=== PATIENT | female | born 2000 | race African-American/Black ===

== ENCOUNTER 2018-07-20 11:13 | Emergency (ER) | payer OTHER | END 2018-07-20 12:57 | disposition home or self-care (01) | LOC: M ED 11:13 | DX: G89.18 Other acute postprocedural pain (principal); Z79.3 Long term (current) use of hormonal contraceptives | CPT/HCPCS: 99283 ==

== ENCOUNTER → 2018-08-21 | Outpatient (REF) | payer OTHER | LOC: M LAB REF 17:04 | DX: S40.852A Superficial foreign body of left upper arm, initial encounter (principal); W18.30XA Fall on same level, unspecified, initial encounter; Y92.009 Unspecified place in unspecified non-institutional (private) residence as the place of occurrence of the external cause ==

== ENCOUNTER 2018-11-20 22:06 | Inpatient (IN) | payer OTHER ==
[~2018-11-20] VITALS: Ht 177.8 cm; Wt 65.0 kg
[2018-11-20 23:18] LABS: HEMATOCRIT 38.7 % (36.0-47.0); HEMOGLOBIN 12.7 g/dl (12.0-15.5); MEAN CORPUSCULAR HEMOGLOBIN 30.1 pg (27.0-33.0); MEAN CORPUSCULAR HGB CONC 32.8 g/dl (32.0-36.5); MEAN CORPUSCULAR VOLUME 91.7 fl (80.0-96.0); PLATELET COUNT, AUTOMATED 193 10^3/uL (150-450); RED BLOOD COUNT 4.22 10^6/uL (4.00-5.40)
[2018-11-20 23:43] LABS: AMPHETAMINES LEVEL URINE NEGATIVE (NEGATIVE); BARBITURATES URINE NEGATIVE (NEGATIVE); BENZODIAZEPINES URINE NEGATIVE (NEGATIVE); CANNABINOIDS URINE NEGATIVE (NEGATIVE); COCAINE METABOLITE URINE NEGATIVE (NEGATIVE); HCG, SERUM QUALITATIVE NEGATIVE (NEGATIVE); METHADONE URINE NEGATIVE (NEGATIVE); OPIATES URINE NEGATIVE (NEGATIVE); PHENCYCLIDINE URINE NEGATIVE (NEGATIVE)
[2018-11-20 23:57] LABS: ACETAMINOPHEN LEVEL < 2.0 UG/ML (10.0-30.0); ALBUMIN 3.6 GM/DL (3.2-5.2); ALT/SGPT 15 U/L (12-78); BILIRUBIN,DIRECT 0.1 MG/DL (0.0-0.2); BILIRUBIN,TOTAL 0.3 MG/DL (0.2-1.0); BLOOD UREA NITROGEN 23 MG/DL (7-18); CALCIUM LEVEL 8.6 MG/DL (8.5-10.1); CARBON DIOXIDE LEVEL 27 MEQ/L (21-32); CHLORIDE LEVEL 106 MEQ/L (98-107); ETHYL ALCOHOL (ETHANOL) < 0.003 % (0.000-0.010); GLUCOSE, FASTING 84 MG/DL (70-100); POTASSIUM SERUM 4.4 MEQ/L (3.5-5.1); SALICYLATE LEVEL < 1.7 MG/DL (5.0-30.0); SODIUM LEVEL 139 MEQ/L (136-145); TOTAL PROTEIN 7.2 GM/DL (6.4-8.2)
[2018-11-21] MEDS ORDERED: FLUO20CA8 PO (16:58)
[2018-11-21] MEDS ORDERED: ACETAMINOPHEN TAB 650MG DOSE (2X325MG) PO PRN (17:00)
[2018-11-21] MEDS ORDERED: MOM 30ML SUSPENSION UDC PO PRN (17:00)
[2018-11-21] MEDS ORDERED: MAALOX 30 ML SUSP *UDC PO PRN (17:00)
[2018-11-21 18:08] VITALS: BP 109/63
[2018-11-22 06:00] VITALS: BP 101/59
--- NOTE | 2018-11-22 09:57 | HPEPDOC ---
[facility] Medical History & Physical Date of Admission Nov 21, 2018 History and Physical [facility]CP: [facility] ATTENDING: Dr. Maira Patel HPI: 18 yo F admitted to [facility] for unspecified depressive disorder, being m edically examined today. No acute medical complaints today. Denies any fevers, chills, weakness, fatigue, AMBROCIO, CP, SOB, cough, palpitations, abdominal pain, N/V/D or changes in bowel or bladder habits. PMHx: Anxiety Depression History of SI/SA PSHX: Nexplanon placed/removed. SOCHX: Resides in: [facility], from [facility] Marital Status: Single Kids: None Employment: Active duty Tobacco use: Denies ETOH: Denies Illicit Drugs: Denies IV Drug Use: Denies Tattoos done unprofessionally: Denies FAMHX: Mother: Alive, well Father: Alive, well Siblings: 5 sisters Alive, one sister with history of SA Children: None Paternal aunt with history of SA ROS: As noted in HPI, otherwise 11pt ROS of systems reviewed and remarkable only for LMP 10/23/18 PE: GEN: 18 yo F, appears stated age. Well-nourished, well developed. No acute distress. Alert and oriented x 3. Pleasant, interactive. HEENT: Normocephalic, atraumatic. Pupils are equal, round, and reactive to light. Extraocular movements are intact. No nystagmus appreciated. Sclera are nonicteric. Conjunctiva without injection. Nose midline. Nasal turbinates wit hout bogginess. EACs both patent BL. TMs both visualized and em with good cone of light, no bulging or erythema. No facial asymmetry. Moist mucous membranes. Dentition fair. Pharynx pink and moist, no cobblestoning. Neck supple, trachea midline. No lymphadenopathy or thyromegaly appreciated. CHEST: Regular rate and rhythm, +S1, +S2 LUNGS: Clear to auscultation bilaterally. No wheezes, rales, or rhonchi. Breathing appears symmetric and easy. Patient is speaking in full sentences. No accessory muscle use. ABD: Round, soft, non-tender, non-distended. +Bowel sounds throughout. No rebound or guarding. No costovertebral angle tenderness. EXT: Pulses 2+ bilaterally dorsalis pedis and radial. No lower extremity edema appreciated. SKIN: [place], dry, warm. Capillary refill <2sec. No rashes. NEURO: Alert and oriented x 3. Cranial nerves III-XII are intact. No focal deficits appreciated. EKG: Pending A&P: 18 yo F admitted to [facility] for unspecified depressive disorder 1. Psych. Plan per Psychiatry.Obtain baseline EKG to assure the safety of psychiatric medications as they can prolong the QT interval. 2. 3. 4. Follow up with PCP on discharge. 5. Staff member Sultana MARIANO present throughout exam. Vital Signs Vital Signs Date Time Temp Pulse Resp B/P (MAP) Pulse Ox O2 Delivery O2 Flow Rate FiO2 11/22/18 06:00 99.7 64 16 101/59 (73) 11/21/18 18:08 99 11/21/18 06:13 Room Air Laboratory Data Labs 24H Item Value Date Time White Blood Count 6.0 10^3/uL 11/20/182307 Red Blood Count 4.22 10^6/uL 11/20/182307 Hemoglobin 12.7 g/dl 11/20/182307 Hematocrit 38.7 % 11/20/182307 Mean Corpuscular Volume 91.7 fl 11/20/182307 Mean Corpuscular Hemoglobin 30.1 pg 11/20/182307 Mean Corpuscular Hemoglobin Concent 32.8 g/dl 11/20/182307 Red Cell Distribution Width 11.9 % 11/20/182307 Platelet Count 193 10^3/uL 11/20/182307 Nucleated Red Blood Cells % (auto) 0.0 % 11/20/182307 Sodium Level 139 MEQ/L 11/20/182307 Potassium Level 4.4 MEQ/L 11/20/182307 Chloride Level 106 MEQ/L 11/20/182307 Carbon Dioxide Level 27 MEQ/L 11/20/182307 Anion Gap 6 MEQ/L L 11/20/182307 Blood Urea Nitrogen 23 MG/DL H 11/20/182307 Creatinine 0.80 MG/DL 11/20/182307 Fasting Glucose 84 MG/DL 11/20/182307 Calcium Level 8.6 MG/DL 11/20/182307 Total Bilirubin 0.3 MG/DL 11/20/188 Direct Bilirubin 0.1 MG/DL 11/20/182307 Aspartate Amino Transf (AST/SGOT) 10 U/L 11/20/182307 Alanine Aminotransferase (ALT/SGPT) 15 U/L 11/20/182307 Alkaline Phosphatase 68 U/L 11/20/182307 Total Protein 7.2 GM/DL 11/20/182307 Albumin 3.6 GM/DL 11/20/182307 Albumin/Globulin Ratio 1.00 11/20/182307 Thyroid Stimulating Hormone (TSH) 1.060 uIU/ML 11/20/182307 Human Chorionic Gonadotropin, Qual NEGATIVE 11/20/182307 Salicylates Level < 1.7 MG/DL L 11/20/182307 Urine Opiates Screen NEGATIVE 11/20/182307 Urine Methadone Screen NEGATIVE 11/20/182307 Acetaminophen Level < 2.0 UG/ML L 11/20/182307 Urine Barbiturates Screen NEGATIVE 11/20/182307 Urine Phencyclidine Screen NEGATIVE 11/20/182307 Urine Amphetamines Screen NEGATIVE 11/20/182307 Urine Benzodiazepines Screen NEGATIVE 11/20/182307 Urine Cocaine Metabolite Screen NEGATIVE 11/20/182307 Urine Cannabinoids Screen NEGATIVE 11/20/182307 Ethyl Alcohol Level < 0.003 % 11/20/182307 Home Medications Scheduled Fluoxetine Hcl (Fluoxetine) 20 Mg Cap, 20 MG PO DAILY Allergies Coded Allergies: No Known Allergies (Unverified , 07/20/18) Juliet Eagle Nov 22, 2018 09:57
--- NOTE | 2018-11-22 12:00 | MHHPEPDOC ---
General Date Of Admission: Nov 21, 2018 Legal Status: 9.39 Chief Complaint "SI with plan to shoot myself." History of Present Illness HISTORY OF THE PRESENT ILLNESS: Patient is a 18 -year-old , AD, female, with a self reported history of depression, anxiety, bulimia, SA, several psych admission in past else where who was brought to ED by Sgt after friend called him b/c pt endorsing depression and SI with plan to shoot herself (she doesn't own a firearm per ED). Per ED pt very evasive when seen admitting to a history of SA x2 and several psych admissions in [place] but would not give any details about her SA's or admissions just admitted to a lot of problems and being "out of control" in high school. Pt in ED reported worsening depression and eating disorder symptoms stating "I don't like hospital food and this will not help my eating d/o." Pt had a friend in the ED that she request be with her at all times as she felt anxious around new people. Per ED, pt had been in college when she enlisted due to "emotional issues" in school and self enrolled herself at [facility] 4mo ago. Pt reported that she was recently but recently terminated the due to her eating d/o and doctor recommendations. States she was taking prozac but felt she needed a medication change even though she has been noncompliant on it for over 2wks. In Ed, pt denied current SI. She denied HI, hallucinations, delusions, psychosis. Pt seen today and Psychiatric Review of Systems Depression (2 or more weeks): depressed mood, anhedonia, feelings of worthlesness, difficulty concentrating, appetite changes (Eating d/o), suicidal thoughts Ana (4 or more days of): denies Psychosis: denies Anxiety: gen/non-specific anxiety, situational anxiety, stressor related anxiety Anxiety/ 6 months or more of: restlessness, keyed up, difficulty concentrating, irritability Past Psychiatric History Previous Psychiatric Diagnosis: bulimia, depression, anxiety Previous Psychiatric Admissions: several in [place] would not give details Suicide Attempts: 2 SI with intent while in High school, would not give details stating she didn't remember in the ED and with me Psychiatric Follow-up: [facility]. Psychiatric medications: prozac 20mg daily, noncompliant over 2wks Past Medical History Medical Problems denies Head Injury: No Seizures: No Hospitalizations: Yes Surgeries: No Family Medical/Psychiatric HX Medical Problems noncontributory Psychiatric Disorders: No Addiction: No Suicide Attemps/Completions: No Addiction History nicotine Social History Childhood: Born and Raised [place], 2 parent home, 5 siblings (1 older and 4 younger), moved to [place] at 15. Good childhood. Abuse/Trauma:denies Current Living Situation: [place] [place] with a roommate. 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, E3, dental tech Social Support: friends, friends Legal: denies Marital: single, no children Mental Status Examination General Appearance: well groomed, appears stated age, hospital scubs/clothing Build: average Demeanor: average, guarded Eye Contact: average Activity: average, anxious Behavior: cooperative Speech: clear, spontaneous, normal volume, reg/rate,rhythm,volume Mood: depressed, anxious Mood anxious Affect: constricted, appropriate, congruent, anxious Thought Process: logical/linear, depressed, intact Thought Content (Delusions): none reported, denies SI, HI, AVH Thought Content (Other): none reported, appropriate Thought Content (Aggressive): none reported Perception (Hallucinations): none reported Perception (Other): none reported Cognition (Impairment of): none reported Cognition(Intelligence Est.): average Oriented: Awake, Alert, Oriented times three Insight: fair Judgment: Fair Psychosis: Denies Diagnoses Generalized Anxiety D/O Depression Unspecified 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 States she accepts it and that she's too young to have a child now but appears to guilt feelings still that she tries to not focus on. Had been on prozac but stopped b/c it was causing tremors. Agreeable to starting effexor xr for anxiety and depression. Risks/benefits discussed. Denies current SI/HI, hallucinations, delusions. Feels safe here. Denies current ED symptoms and behaviors. Initial Treatment Plan 1. Patient was admitted on a 9.39 status. 2. Complete history was obtained. 3. With patients permission, family will be contacted and database will be expanded. 4. Patients medication regimen will be reviewed and changed accordingly. 5. Patient will be provided with protected environment. 6. Patient will be treated with individual, group, and milieu therapies. 7. Patient will receive supportive psych-education. 8. Discharge planning will commence immediately. 9. Outpatient follow-up treatment will be strongly recommended. 10. The initial treatment plan will focus initially on: * Depression. * Risk for suicide. * Substance abuse. 11. Start effexor xr 37.5mg daily for mood and anxiety ESTIMATED LENGTH OF STAY: 5-7 DAYS. TIME SPENT COUNSELING AND COORDINATING INITIAL CARE: 60 minutes. Vital Signs Vital Signs Date Time Temp Pulse Resp B/P (MAP) Pulse Ox O2 Delivery O2 Flow Rate FiO2 11/22/18 06:00 99.7 64 16 101/59 (73) 11/21/18 18:08 99 11/21/18 06:13 Room Air Medications Scheduled Fluoxetine Hcl (Fluoxetine) 20 Mg Cap, 20 MG PO DAILY, (Reported) Allergies Coded Allergies: No Known Allergies (Unverified , 07/20/18) KAVYA JOE DO Nov 22, 2018 12:00
[2018-11-22] MEDS ORDERED: VENLAFAXINE **XR** 37.5 MG CAPSULE PO ONE (12:15)
[2018-11-22 18:00] VITALS: BP 127/85
[2018-11-23 07:45] VITALS: BP 106/55
[2018-11-23] MEDS: VENLAFAXINE **XR** 37.5 MG CAPSULE PO SCH (09:36)
--- NOTE | 2018-11-23 11:14 | MHIPNPDOC ---
[facility] Progress Note Progress Note DATE OF SERVICE: 11/23/18 HISTORY: Patient is a 18 -year-old , AD, female, with a self reported history of depression, anxiety, bulimia, SA, several psych admission in past else where who was brought to ED by Sgt after friend called him b/c pt endorsing depression and SI with plan to shoot herself (she doesn't own a firearm per ED). Per ED pt very evasive when seen admitting to a history of SA x2 and several psych admissions in [place] but would not give any details about her SA's or admissions just admitted to a lot of problems and being "out of control" in high school. Pt in ED reported worsening depression and eating disorder symptoms stating "I don't like hospital food and this will not help my eating d/o." Pt had a friend in the ED that she request be with her at all times as she felt anxious around new people. Per ED, pt had been in college when she enlisted due to "emotional issues" in school and self enrolled herself at [facility] 4mo ago. Pt reported that she was recently but recently terminated the due to her eating d/o and doctor recommendations. States she was taking prozac but felt she needed a medication change even though she has been noncompliant on it for over 2wks. In Ed, pt denied current SI. She denied HI, hallucinations, delusions, psychosis. VITAL SIGNS: See below. NEW TEST RESULTS: See below. CURRENT MEDICATIONS: See below. MENTAL STATUS EXAMINATION: General Appearance: well groomed, appears stated age, hospital scrubs/clothing Build: average Demeanor: average, guarded Eye Contact: average Activity: average, anxious Behavior: cooperative Speech: clear, spontaneous, normal volume, reg/rate,rhythm,volume Mood: less depressed, anxious Mood anxious Affect: less constricted, appropriate, congruent, anxious Thought Process: logical/linear, less depressed, intact Thought Content (Delusions): none reported, denies SI, HI, AVH Thought Content (Other): none reported, appropriate Thought Content (Aggressive): none reported Perception (Hallucinations): none reported Perception (Other): none reported Cognition (Impairment of): none reported Cognition(Intelligence Est.): average Oriented: Awake, Alert, Oriented times three Insight: fair Judgment: Fair Psychosis: Denies DIAGNOSES: Generalized Anxiety D/O Depression Unspecified 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 Spoke with her close friend on the phone yesterday which made her feel good and she hopes her friend visits her on the weekend. States she's being social on the milieu which is beneficial. States she slept algitht last night but her roommate snores. Feels she is tolerating her medications and they're beneficial. She is attending groups and finding them helpful. States she's still biting her fingers when she's anxious and discusses coping strategies and habit replacing ways to stop. She denies insomnia, SI/HI, hallucinations, delusions. Pt feels safe here. MANAGEMENT PLAN: Continue current treatment Medication: effexor xr 37.5mg daily for mood and anxiety vistaril 10mg q6hr prn anxiety trazodone 50mg qhs prn insomnia TIME SPENT: 30 minutes. Vital Signs Vital Signs Date Time Temp Pulse Resp B/P (MAP) Pulse Ox O2 Delivery O2 Flow Rate FiO2 11/23/18 07:45 98.2 72 16 106/55 (72) 11/22/18 18:00 99 11/21/18 06:13 Room Air Current Medications Current Medications Acetaminophen (Tylenol Tab) 650 mg Q6HP PRN PO HEADACHE or DISCOMFORT; Start 11/21/18 at 17:00 Al Hydrox/Mg Hydrox/Simethicone (Mylanta) 30 ml Q4HP PRN PO HEARTBURN/INDIGESTION; Start 11/21/18 at 17:00 Home Med (Med Rec Complete!) ASDIRECTED XX ; Start 11/21/18 at 17:00; Stop 11/21/18 at 17:01; Status DC Hydroxyzine HCl (Atarax) 10 mg Q6HP PRN PO ANXIETY/AGITATION; Start 11/22/18 at 12:00 Magnesium Hydroxide (Milk Of Magnesia) 30 ml DAILYPRN PRN PO CONSTIPATION; Start 11/21/18 at 17:00 Trazodone HCl (Desyrel) 50 mg QHSP PRN PO INSOMNIA; Start 11/21/18 at 17:00 Venlafaxine HCl (Effexor Xr) 37.5 mg DAILY PO Last administered on 11/23/18at 09:36; Start 11/23/18 at 09:00 Allergies Coded Allergies: No Known Allergies (Unverified , 07/20/18) KAVYA JOE DO Nov 23, 2018 11:14 am
[2018-11-23 18:00] VITALS: BP 125/74
[2018-11-23] MEDS: traZODone 50 MG TAB PO PRN (20:36)
[2018-11-24 06:41] VITALS: BP 111/57
[2018-11-24] MEDS: VENLAFAXINE **XR** 37.5 MG CAPSULE PO SCH (09:11)
--- NOTE | 2018-11-24 09:21 | MHIPNPDOC ---
[facility] Progress Note Progress Note DATE OF SERVICE: 11/24/18 HISTORY: Patient is a 18 -year-old , AD, female, with a self reported history of depression, anxiety, bulimia, SA, several psych admission in past else where who was brought to ED by Sgt after friend called him b/c pt endorsing depression and SI with plan to shoot herself (she doesn't own a firearm per ED). Per ED pt very evasive when seen admitting to a history of SA x2 and several psych admissions in [place] but would not give any details about her SA's or admissions just admitted to a lot of problems and being "out of control" in high school. Pt in ED reported worsening depression and eating disorder symptoms stating "I don't like hospital food and this will not help my eating d/o." Pt had a friend in the ED that she request be with her at all times as she felt anxious around new people. Per ED, pt had been in college when she enlisted due to "emotional issues" in school and self enrolled herself at [facility] 4mo ago. Pt reported that she was recently but recently terminated the due to her eating d/o and doctor recommendations. States she was taking prozac but felt she needed a medication change even though she has been noncompliant on it for over 2wks. In Ed, pt denied current SI. She denied HI, hallucinations, delusions, psychosis. VITAL SIGNS: See below. NEW TEST RESULTS: See below. CURRENT MEDICATIONS: See below. MENTAL STATUS EXAMINATION: General Appearance: well groomed, appears stated age, hospital scrubs/clothing Build: average Demeanor: average, guarded Eye Contact: average Activity: average, less anxious Behavior: cooperative Speech: clear, spontaneous, normal volume, reg/rate,rhythm,volume Mood: less depressed, less anxious Mood "better" Affect: less constricted, appropriate, congruent, less anxious Thought Process: logical/linear, less depressed, intact Thought Content (Delusions): none reported, denies SI, HI, AVH Thought Content (Other): none reported, appropriate Thought Content (Aggressive): none reported Perception (Hallucinations): none reported Perception (Other): none reported Cognition (Impairment of): none reported Cognition(Intelligence Est.): average Oriented: Awake, Alert, Oriented times three Insight: fair Judgment: Fair Psychosis: Denies DIAGNOSES: Generalized Anxiety D/O Depression Unspecified 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 States her close friend came to visit her last night which made her feel really good. States she's being social on the milieu which is beneficial. States she slept well last night with the use of trazodone. Minor daytime fatigue but wants to continue medication as it is. Feels she is tolerating her medications and they're beneficial. She is attending groups and finding them helpful. Trying to bite her fingers less and is working on habit replacing ways to stop. She denies insomnia, SI/HI, hallucinations, delusions. Pt feels safe here. MANAGEMENT PLAN: Continue current treatment Medication: effexor xr 37.5mg daily for mood and anxiety vistaril 10mg q6hr prn anxiety trazodone 50mg qhs prn insomnia TIME SPENT: 30 minutes. Vital Signs Vital Signs Date Time Temp Pulse Resp B/P (MAP) Pulse Ox O2 Delivery O2 Flow Rate FiO2 11/24/18 06:41 97.7 61 14 111/57 (75) 11/22/18 18:00 99 11/21/18 06:13 Room Air Current Medications Current Medications Acetaminophen (Tylenol Tab) 650 mg Q6HP PRN PO HEADACHE or DISCOMFORT; Start 11/21/18 at 17:00 Al Hydrox/Mg Hydrox/Simethicone (Mylanta) 30 ml Q4HP PRN PO HEARTBURN/INDIGESTION; Start 11/21/18 at 17:00 Home Med (Med Rec Complete!) ASDIRECTED XX ; Start 11/21/18 at 17:00; Stop 11/21/18 at 17:01; Status DC Hydroxyzine HCl (Atarax) 10 mg Q6HP PRN PO ANXIETY/AGITATION; Start 11/22/18 at 12:00 Magnesium Hydroxide (Milk Of Magnesia) 30 ml DAILYPRN PRN PO CONSTIPATION; Start 11/21/18 at 17:00 Trazodone HCl (Desyrel) 50 mg QHSP PRN PO INSOMNIA Last administered on 11/23/18at 20:36; Start 11/21/18 at 17:00 Venlafaxine HCl (Effexor Xr) 37.5 mg DAILY PO Last administered on 11/24/18at 09:11; Start 11/23/18 at 09:00 Allergies Coded Allergies: No Known Allergies (Unverified , 07/20/18) KAVYA JOE DO Nov 24, 2018 9:21 am
[2018-11-24 18:00] VITALS: BP 124/57
[2018-11-24] MEDS: traZODone 50 MG TAB PO PRN (20:09)
[2018-11-25 06:31] VITALS: BP 104/52
[2018-11-25] MEDS: VENLAFAXINE **XR** 37.5 MG CAPSULE PO SCH (09:23)
[2018-11-25 18:00] VITALS: BP 111/68
[2018-11-25] MEDS: traZODone 50 MG TAB PO PRN (20:35)
[2018-11-25] MEDS: hydrOXYzine 10 MG TAB PO PRN (20:53)
[2018-11-26 06:51] VITALS: BP 92/55
[2018-11-26] MEDS: hydrOXYzine 10 MG TAB PO PRN ×2 (09:15→20:09)
[2018-11-26] MEDS: VENLAFAXINE **XR** 37.5 MG CAPSULE PO SCH (09:16)
--- NOTE | 2018-11-26 10:03 | MHIPNPDOC ---
[facility] Progress Note Progress Note DATE OF SERVICE: 11/26/18 HISTORY: Patient is a 18 -year-old , AD, female, with a self reported history of depression, anxiety, bulimia, SA, several psych admission in past else where who was brought to ED by Sgt after friend called him b/c pt endorsing depression and SI with plan to shoot herself (she doesn't own a firearm per ED). Per ED pt very evasive when seen admitting to a history of SA x2 and several psych admissions in [place] but would not give any details about her SA's or admissions just admitted to a lot of problems and being "out of control" in high school. Pt in ED reported worsening depression and eating disorder symptoms stating "I don't like hospital food and this will not help my eating d/o." Pt had a friend in the ED that she request be with her at all times as she felt anxious around new people. Per ED, pt had been in college when she enlisted due to "emotional issues" in school and self enrolled herself at [facility] 4mo ago. Pt reported that she was recently but recently terminated the due to her eating d/o and doctor recommendations. States she was taking prozac but felt she needed a medication change even though she has been noncompliant on it for over 2wks. In Ed, pt denied current SI. She denied HI, hallucinations, delusions, psychosis. VITAL SIGNS: See below. NEW TEST RESULTS: See below. CURRENT MEDICATIONS: See below. MENTAL STATUS EXAMINATION: General Appearance: well groomed, appears stated age, hospital scrubs/clothing Build: average Demeanor: average, guarded Eye Contact: average Activity: average, less anxious Behavior: cooperative Speech: clear, spontaneous, normal volume, reg/rate,rhythm,volume Mood: less depressed, less anxious Mood "better" Affect: less constricted, appropriate, congruent, less anxious Thought Process: logical/linear, less depressed, intact Thought Content (Delusions): none reported, denies SI, HI, AVH Thought Content (Other): none reported, appropriate Thought Content (Aggressive): none reported Perception (Hallucinations): none reported Perception (Other): none reported Cognition (Impairment of): none reported Cognition(Intelligence Est.): average Oriented: Awake, Alert, Oriented times three Insight: fair Judgment: Fair Psychosis: Denies DIAGNOSES: Generalized Anxiety D/O Depression Unspecified 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 States she's tolerating the effexor xr and is finding it helpful. She had a good time watching the [employer] with her peer pts yesterday and that it was nice. Did not finish watching the game as she wanted to get some good rest which she did. States she's being social on the milieu which is beneficial. States vistaril is beneficial for anxiety and likes it. Endorses only minor fatigue from it that she states she's fine with as her anxiety is greatly improved. Feels she is tolerating her medications and they're beneficial. She is attending groups and finding them helpful. Trying to bite her fingers less and is working on habit replacing ways to stop. She denies insomnia, SI/HI, hallucinations, delusions. Pt feels safe here. MANAGEMENT PLAN: Continue current treatment Medication: effexor xr 37.5mg daily for mood and anxiety vistaril 10mg q6hr prn anxiety trazodone 50mg qhs prn insomnia TIME SPENT: 30 minutes. Vital Signs Vital Signs Date Time Temp Pulse Resp B/P (MAP) Pulse Ox O2 Delivery O2 Flow Rate FiO2 11/26/18 06:51 99.3 66 12 92/55 (67) 11/25/18 18:00 96 11/21/18 06:13 Room Air Current Medications Current Medications Acetaminophen (Tylenol Tab) 650 mg Q6HP PRN PO HEADACHE or DISCOMFORT Last administered on 11/25/18at 18:43; Start 11/21/18 at 17:00 Al Hydrox/Mg Hydrox/Simethicone (Mylanta) 30 ml Q4HP PRN PO HEARTBURN/INDIGEST ION; Start 11/21/18 at 17:00 Home Med (Med Rec Complete!) ASDIRECTED XX ; Start 11/21/18 at 17:00; Stop 11/21/18 at 17:01; Status DC Hydroxyzine HCl (Atarax) 10 mg Q6HP PRN PO ANXIETY/AGITATION Last administered on 11/25/18at 20:53; Start 11/22/18 at 12:00 Magnesium Hydroxide (Milk Of Magnesia) 30 ml DAILYPRN PRN PO CONSTIPATION; Start 11/21/18 at 17:00 Trazodone HCl (Desyrel) 50 mg QHSP PRN PO INSOMNIA Last administered on 11/25/18at 20:35; Start 11/21/18 at 17:00 Venlafaxine HCl (Effexor Xr) 37.5 mg DAILY PO Last administered on 11/25/18at 09:23; Start 11/23/18 at 09:00 Allergies Coded Allergies: No Known Allergies (Unverified , 07/20/18) KAVYA JOE DO Nov 26, 2018 9:15 am
[2018-11-26 18:00] VITALS: BP 119/65
[2018-11-26] MEDS: traZODone 50 MG TAB PO PRN (20:09)
[2018-11-27 06:32] VITALS: BP 100/50
[2018-11-27] MEDS: hydrOXYzine 10 MG TAB PO PRN (08:13)
[2018-11-27] MEDS: VENLAFAXINE **XR** 37.5 MG CAPSULE PO SCH (08:13)
--- NOTE | 2018-11-27 09:06 | MHDSPDOC ---
[facility] Discharge Summary Discharge Summary DATE OF ADMISSION: Nov 21, 2018 at 4:58 pm DATE OF DISCHARGE: Nov 27, 2018 DISCHARGE DIAGNOSIS: Generalized Anxiety D/O Depression Unspecified Hx Eating D/O - restrict/binge/purge type now in short term remission REASON FOR ADMISSION: Patient is a 18 -year-old , AD, female, with a self reported history of depression, anxiety, bulimia, SA, several psych admission in past else where who was brought to ED by Sgt after friend called him b/c pt endorsing depression and SI with plan to shoot herself (she doesn't own a firearm per ED). Per ED pt very evasive when seen admitting to a history of SA x2 and several psych admissions in [place] but would not give any details about her SA's or admissions just admitted to a lot of problems and being "out of control" in high school. Pt in ED reported worsening depression and eating disorder symptoms stating "I don't like hospital food and this will not help my eating d/o." Pt had a friend in the ED that she request be with her at all times as she felt anxious around new people. Per ED, pt had been in college when she enlisted due to "emotional issues" in school and self enrolled herself at [facility] 4mo ago. Pt reported that she was recently but recently terminated the due to her eating d/o and doctor recommendations. States she was taking prozac but felt she needed a medication change even though she has been noncompliant on it for over 2wks. In Ed, pt denied current SI. She denied HI, hallucinations, delusions, psychosis. CONSULTANTS INVOLVED: none TREATMENT AND PROGRESS ON THE UNIT : Pt was admitted to [facility], seen for psychiatric assessment and started on effexor xr 37.5mg daiy for mood and anxiety. She was provided vistaril 10mg q6hr prn anxiety and trazodone 50mg qhs prn insomnia. Pt found her medications beneficial and tolerated them well. She attended groups daily during his stay. She ate well during her treatment with no eating d/o behaviors. Her symptoms improved with treatment. On day of discharge she denied depression, anxiety, insomnia, SI/HI, hallucinations, delusions. She was discharged home after Brad meeting with follow-up at [facility]. She felt safe for discharge. DISCHARGE ASSESSMENT: Pt seen and states that her mood is "good" and she's excited to go home today. States she's tolerating the effexor xr and is finding it helpful. States she's being social on the milieu which is beneficial. States vistaril is beneficial for anxiety and likes it. Endorses only minor fatigue from it that she states she's fine with as her anxiety is greatly improved. Feels she is tolerating her medications and they're beneficial. She is attending groups and finding them helpful. She denies depression, anxiety, insomnia, SI/HI, hallucinations, delusions. Pt feels safe to be discharged home with her Brad. MENTAL STATUS EXAMINATION ON DISCHARGE: General Appearance: well groomed, appears stated age, own clothing Build: average Demeanor: average Eye Contact: average Activity: average, less anxious Behavior: cooperative Speech: clear, spontaneous, normal volume, reg/rate,rhythm,volume Mood: euthymic, full range, bright Mood "good" Affect: euthymic, full range, bright Thought Process: logical/linear, intact Thought Content (Delusions): none reported, denies SI, HI, AVH Thought Content (Other): none reported, appropriate Thought Content (Aggressive): none reported Perception (Hallucinations): none reported Perception (Other): none reported Cognition (Impairment of): none reported Cognition(Intelligence Est.): average Oriented: Awake, Alert, Oriented times three Insight: good Judgment: good Psychosis: Denies MEDICATIONS ON DISCHARGE: effexor xr 37.5mg daily for mood and anxiety vistaril 10mg q6hr prn anxiety trazodone 50mg qhs prn insomnia PLAN/FOLLOWUP ARRANGEMENTS: D/c home with Brad with follow-up at [facility] The amount of time spent in the coordination of care for this patient was approximately 30 minutes. Vital Signs/I&Os Vital Signs Date Time Temp Pulse Resp B/P (MAP) Pulse Ox O2 Delivery O2 Flow Rate FiO2 11/27/18 06:32 97.3 61 14 100/50 (67) 11/25/18 18:00 96 11/21/18 06:13 Room Air Medications Scheduled Fluoxetine Hcl (Fluoxetine) 20 Mg Cap, 20 MG PO DAILY, (Reported) Allergies Coded Allergies: No Known Allergies (Unverified , 07/20/18) KAVYA JOE DO Nov 27, 2018 9:06 am
[2018-11-27] MEDS ORDERED: HYDR-643 PO (09:10)
[2018-11-27] MEDS ORDERED: VENL37.598 PO (09:10)
[2018-11-27] MEDS ORDERED: TRAZO50TA PO (09:10)
== END 2018-11-27 11:40 | disposition home or self-care (01) | DRG 880 ==
LOC: M ED 22:06 → M ED INP 11-21 16:58 → M PSY 11-21 18:10
PROVIDERS: ADMIT Psychiatry & Neurology Psychiatry; ATTEND Psychiatry & Neurology Psychiatry
DX: F41.1 Generalized anxiety disorder (principal); F50.02 Anorexia nervosa, binge eating/purging type; F32.9 Major depressive disorder, single episode, unspecified; Z79.899 Other long term (current) drug therapy; Z91.14 Patient's other noncompliance with medication regimen

== ENCOUNTER 2019-02-06 21:44 | Emergency (ER) | payer OTHER ==
[~2019-02-06] VITALS: Ht 177.8 cm; Wt 67.8 kg
[~2019-02-06 21:44] MED LIST: FLUO20CA8 PO; HYDR-643 PO; TRAZO50TA PO; VENL37.598 PO
[2019-02-06 22:40] LABS: URINE PREG TEST NEGATIVE (NEGATIVE)
[2019-02-06] MEDS ORDERED: DIFL150T PO (23:05)
[2019-02-06 23:09] VITALS: BP 120/72
[2019-02-07 00:28] LABS: CHLAMYDIA DNA AMPLIFICATION NEGATIVE (NEGATIVE); GC DNA AMPLIFICATION NEGATIVE (NEGATIVE)
== END 2019-02-06 23:14 | disposition home or self-care (01) ==
LOC: M ED 21:44
DX: B37.3 Candidiasis of vulva and vagina (principal); F41.9 Anxiety disorder, unspecified; F32.9 Major depressive disorder, single episode, unspecified

== ENCOUNTER 2019-04-03 07:12 | Emergency (ER) | payer OTHER ==
[~2019-04-03] VITALS: Ht 177.8 cm; Wt 68.5 kg
[~2019-04-03 07:12] MED LIST changes: +DIFL150T PO; +TRAZ1TAB10 PO; -TRAZO50TA PO
[2019-04-03] MEDS ORDERED: ONDA4TAB5 PO (07:22)
[2019-04-03] MEDS ORDERED: MULTTAB20 PO (07:22)
[2019-04-03] MEDS ORDERED: NS 1,000 ML IV ONE (07:45)
[2019-04-03] MEDS ORDERED: ONDANSETRON 4MG/2ML VIAL (J2405) IV ONE (07:45)
[2019-04-03 07:57] LABS: BASO % 0.4 % (0.0-1.0); EOS # 0.2 10^3/uL (0.0-0.50); EOS % 3.5 % (0.0-3.0); HEMATOCRIT 40.7 % (36.0-47.0); HEMOGLOBIN 13.8 g/dl (12.0-15.5); LYMPH # 1.5 10^3/uL (1.5-6.5); LYMPH % 28.8 % (24.0-44.0); MEAN CORPUSCULAR HEMOGLOBIN 31.4 pg (27.0-33.0); MEAN CORPUSCULAR HGB CONC 33.9 g/dl (32.0-36.5); MEAN CORPUSCULAR VOLUME 92.7 fl (80.0-96.0); MONO # 0.5 10^3/uL (0.0-0.8); MONO % 9.7 % (0.0-5.0); NEUTROPHILS % 57.2 % (36.0-66.0); PLATELET COUNT, AUTOMATED 201 10^3/uL (150-450); RED BLOOD COUNT 4.39 10^6/uL (4.00-5.40); WHITE BLOOD COUNT 5.2 10^3/uL (4.0-10.0)
[2019-04-03 08:17] LABS: ALBUMIN 3.9 GM/DL (3.2-5.2); ALT/SGPT 23 U/L (12-78); BILIRUBIN,DIRECT 0.2 MG/DL (0.0-0.2); BILIRUBIN,TOTAL 0.5 MG/DL (0.2-1.0); BLOOD UREA NITROGEN 16 MG/DL (7-18); CARBON DIOXIDE LEVEL 26 MEQ/L (21-32); CHLORIDE LEVEL 105 MEQ/L (98-107); CREATININE FOR GFR 0.88 MG/DL (0.55-1.30); GLUCOSE, FASTING 89 MG/DL (70-100); LIPASE 75 U/L (73-393); POTASSIUM SERUM 3.8 MEQ/L (3.5-5.1); SODIUM LEVEL 137 MEQ/L (136-145)
--- NOTE | 2019-04-03 08:29 | REP ---
EMERGENCY FIRST TRIMESTER OBSTETRIC SONOGRAPHY: HISTORY: Abdomen pain. Question ectopic. FINDINGS: Transabdominal scanning is performed. An intrauterine gestation is confirmed. There is a 4 mm embryonic pole corresponding with a 9-uerq-8-day gestational age estimate. heart rate is recorded at 126 beats per minute. No subchorionic hemorrhage is seen. No extrauterine abnormality is observed. IMPRESSION: Viable single intrauterine gestation at 6 weeks 0 days by crown-rump length. ALEXI by sonography November 27, 2019. No complication is identified. Electronically Signed by Osmani Anton MD 04/03/2019 06:13 P
[2019-04-03 09:35] LABS: APPEARANCE, URINE HAZY (CLEAR); BACTERIA, URINE AUTO 1+ (NEGATIVE); BILIRUBIN, URINE AUTO NEGATIVE (NEGATIVE); BLOOD, URINE BLOOD NEGATIVE (NEGATIVE); COLOR, URINE YELLOW (YELLOW); GLUCOSE, URINE (UA) AUTO NEGATIVE (NEGATIVE); KETONE, URINE AUTO 2+ mg/dL (NEGATIVE); LEUKOCYTE ESTERASE, URINE AUTO TRACE (NEGATIVE); MUCUS, URINE SMALL (NEGATIVE); NITRITE, URINE AUTO NEGATIVE (NEGATIVE); PROTEIN, URINE AUTO NEGATIVE (NEGATIVE); RBC, URINE AUTO 2 /HPF (0-3); SPECIFIC GRAVITY URINE AUTO 1.023 (1.002-1.035); SQUAMOUS EPITHELIAL CELL UR AU 11 /HPF (0-6); WBC, URINE AUTO 2 /HPF (0-3)
[2019-04-03] MEDS ORDERED: UNIS25TA3 PO (09:40)
[2019-04-03] MEDS ORDERED: PYRI25TA2 PO (09:40)
[2019-04-03 09:47] VITALS: BP 123/66
== END 2019-04-03 09:53 | disposition home or self-care (01) ==
LOC: M ED 07:12
DX: O21.9 Vomiting of pregnancy, unspecified (principal); Z3A.00 Weeks of gestation of pregnancy not specified; Z79.899 Other long term (current) drug therapy
CPT/HCPCS: 76801; 80048; 80076; 81001; 83690; 85025; 96361; 96374; 99284; J2405

== ENCOUNTER 2019-04-11 09:23 | Emergency (ER) | payer OTHER ==
[~2019-04-11] VITALS: Ht 177.8 cm; Wt 69.5 kg
[~2019-04-11 09:23] MED LIST changes: +MULTTAB20 PO; +ONDA4TAB5 PO; +PYRI25TA2 PO; +UNIS25TA3 PO
[2019-04-11] MEDS ORDERED: FAMO20TA PO (10:45)
[2019-04-11 10:50] VITALS: BP 113/66
== END 2019-04-11 10:54 | disposition home or self-care (01) ==
LOC: M ED 09:23
DX: O99.611 Diseases of the digestive system complicating pregnancy, first trimester (principal); Z3A.01 Less than 8 weeks gestation of pregnancy; O99.341 Other mental disorders complicating pregnancy, first trimester; Z79.899 Other long term (current) drug therapy

== ENCOUNTER 2019-04-18 07:01 | Emergency (ER) | payer OTHER ==
[~2019-04-18] VITALS: Ht 177.8 cm; Wt 67.6 kg
[~2019-04-18 07:01] MED LIST changes: +FAMO20TA PO
[2019-04-18] MEDS ORDERED: NS 1,000 ML IV ONE (08:00)
[2019-04-18] MEDS ORDERED: ONDANSETRON 4MG/2ML VIAL (J2405) IV ONE (08:00)
[2019-04-18 08:38] LABS: BASO % 0.4 % (0.0-1.0); EOS # 0.4 10^3/uL (0.0-0.50); EOS % 8.2 % (0.0-3.0); HEMOGLOBIN 13.2 g/dl (12.0-15.5); LYMPH # 1.5 10^3/uL (1.5-6.5); LYMPH % 29.2 % (24.0-44.0); MEAN CORPUSCULAR HEMOGLOBIN 30.8 pg (27.0-33.0); MEAN CORPUSCULAR HGB CONC 33.8 g/dl (32.0-36.5); MEAN CORPUSCULAR VOLUME 90.9 fl (80.0-96.0); MONO # 0.5 10^3/uL (0.0-0.8); MONO % 10.2 % (0.0-5.0); NEUTROPHILS # 2.7 10^3/uL (1.8-7.7); NEUTROPHILS % 51.6 % (36.0-66.0); PLATELET COUNT, AUTOMATED 185 10^3/uL (150-450); RED BLOOD COUNT 4.29 10^6/uL (4.00-5.40); WHITE BLOOD COUNT 5.3 10^3/uL (4.0-10.0)
[2019-04-18 09:05] LABS: BLOOD UREA NITROGEN 11 MG/DL (7-18); CALCIUM LEVEL 8.8 MG/DL (8.5-10.1); CARBON DIOXIDE LEVEL 25 MEQ/L (21-32); CHLORIDE LEVEL 106 MEQ/L (98-107); CREATININE FOR GFR 0.72 MG/DL (0.55-1.30); GLUCOSE, FASTING 79 MG/DL (70-100); POTASSIUM SERUM 3.7 MEQ/L (3.5-5.1); SODIUM LEVEL 137 MEQ/L (136-145)
[2019-04-18 10:14] LABS: APPEARANCE, URINE HAZY (CLEAR); BACTERIA, URINE AUTO NEGATIVE (NEGATIVE); BILIRUBIN, URINE AUTO NEGATIVE (NEGATIVE); BLOOD, URINE BLOOD NEGATIVE (NEGATIVE); COLOR, URINE YELLOW (YELLOW); GLUCOSE, URINE (UA) AUTO NEGATIVE (NEGATIVE); KETONE, URINE AUTO TRACE mg/dL (NEGATIVE); LEUKOCYTE ESTERASE, URINE AUTO 1+ (NEGATIVE); MUCUS, URINE SMALL (NEGATIVE); NITRITE, URINE AUTO NEGATIVE (NEGATIVE); PROTEIN, URINE AUTO NEGATIVE (NEGATIVE); RBC, URINE AUTO 3 /HPF (0-3); SQUAMOUS EPITHELIAL CELL UR AU 3 /HPF (0-6); UROBILINOGEN, URINE AUTO 0.2 mg/dL (0.0-2.0); WBC, URINE AUTO 3 /HPF (0-3)
[2019-04-18] MEDS ORDERED: ONDA4TAB6 PO (10:35)
[2019-04-18 10:58] VITALS: BP 117/67
== END 2019-04-18 11:08 | disposition home or self-care (01) ==
LOC: M ED 07:01
DX: O21.0 Mild hyperemesis gravidarum (principal); Z3A.08 8 weeks gestation of pregnancy
CPT/HCPCS: 80048; 81001; 85025; 96361; 96374; 99284; J2405

== ENCOUNTER 2019-05-16 16:27 | Emergency (ER) | payer OTHER ==
[~2019-05-16] VITALS: Ht 177.8 cm; Wt 77.9 kg
[~2019-05-16 16:27] MED LIST changes: +ONDA4TAB6 PO
[2019-05-16 17:26] LABS: HEMATOCRIT 36.9 % (36.0-47.0); HEMOGLOBIN 12.2 g/dl (12.0-15.5); MEAN CORPUSCULAR HGB CONC 33.1 g/dl (32.0-36.5); MEAN CORPUSCULAR VOLUME 93.7 fl (80.0-96.0); PLATELET COUNT, AUTOMATED 241 10^3/uL (150-450); RED BLOOD COUNT 3.94 10^6/uL (4.00-5.40); WHITE BLOOD COUNT 5.7 10^3/uL (4.0-10.0)
[2019-05-16 17:59] LABS: ALBUMIN 3.7 GM/DL (3.2-5.2); ALT/SGPT 15 U/L (12-78); BILIRUBIN,TOTAL 0.3 MG/DL (0.2-1.0); BLOOD UREA NITROGEN 12 MG/DL (7-18); CALCIUM LEVEL 8.8 MG/DL (8.5-10.1); CARBON DIOXIDE LEVEL 28 MEQ/L (21-32); CHLORIDE LEVEL 110 MEQ/L (98-107); CREATININE FOR GFR 0.84 MG/DL (0.55-1.30); GLUCOSE, FASTING 95 MG/DL (70-100); POTASSIUM SERUM 4.3 MEQ/L (3.5-5.1); SODIUM LEVEL 142 MEQ/L (136-145); TOTAL PROTEIN 7.5 GM/DL (6.4-8.2)
--- NOTE | 2019-05-16 21:01 | REPVR ---
EXAM: US First Trimester, Transabdominal EXAM DATE/TIME: 05/16/2019 7:46 PM CLINICAL HISTORY: 18 years old, female; Pain; Other: Cramping S/P d&c; Gestational age or lmp: 02/14/19; ; Prior surgery; Surgery date: 3-7 days post-operative; Surgery type: D&c last week; Additional info: Pelvic cramping S/P d TECHNIQUE: Imaging protocol: Real-time transabdominal obstetrical ultrasound of the maternal pelvis and a first trimester , less than 14 weeks 0 days, with image documentation. COMPARISON: No relevant prior studies available. FINDINGS: GESTATION: Gestation: No intrauterine gestational sac. MATERNAL: Uterus: The uterus measures 9.7 cm in its cephalocaudad dimension and 4.2 x 5.3 cm in its AP and lateral dimensions transabdominal. The uterus measures 9.0 cm in its cephalocaudad dimension and 3.8 x 5.9 cm in its AP and lateral dimensions transvaginal. The endometrium measures 1-2 mm with trace of atrial fluid. No gestational sac is seen. Cervix: Unremarkable. Right adnexa: The right ovary measures 1.6 x 2.4 x 1.7 cm and demonstrates a few small follicles and normal blood flow. Left adnexa: The left ovary measures 2.5 x 2.0 x 1.3 cm and demonstrates minimal follicles and normal blood flow. Intraperitoneal: No intraperitoneal free fluid. IMPRESSION: 1. Trace endometrial fluid with no gestational sac. Findings may reflect recent spontaneous AB. Ectopic is not excluded. Serial beta-hCG levels may be of benefit. 2. Otherwise negative pelvic sonogram. Electronically signed by: Galileo Li On 05/16/2019 21:00:55 PM
[2019-05-16] MEDS ORDERED: FLUCONAZOLE 50MG TABLET PO ONE (22:15)
[2019-05-16 22:18] LABS: CHLAMYDIA DNA AMPLIFICATION NEGATIVE (NEGATIVE); GC DNA AMPLIFICATION NEGATIVE (NEGATIVE)
[2019-05-16 22:30] VITALS: BP 122/86
== END 2019-05-16 22:44 | disposition home or self-care (01) ==
LOC: M ED 16:27
DX: O04.5 Genital tract and pelvic infection following (induced) termination of pregnancy (principal); R10.2 Pelvic and perineal pain; B37.3 Candidiasis of vulva and vagina

== ENCOUNTER → 2019-05-20 | Outpatient (CLI) | payer OTHER | LOC: M LAB 10:33 | PROVIDERS: ATTEND Physician Assistant | DX: R10.2 Pelvic and perineal pain (principal) ==

== ENCOUNTER 2019-06-13 22:00 | Emergency (ER) | payer OTHER ==
[~2019-06-13] VITALS: Ht 177.8 cm; Wt 75.0 kg
[2019-06-13 22:02] VITALS: BP 119/87
== END 2019-06-14 00:45 | disposition left against medical advice (07) ==
LOC: M ED 22:00
DX: Z53.21 Procedure and treatment not carried out due to patient leaving prior to being seen by health care provider (principal)

== ENCOUNTER 2019-06-14 12:08 | Emergency (ER) | payer OTHER ==
[~2019-06-14] VITALS: Ht 177.8 cm; Wt 74.8 kg
[2019-06-14 13:15] VITALS: BP 111/64
== END 2019-06-14 13:17 | disposition home or self-care (01) ==
LOC: M ED 12:08
DX: Z32.01 Encounter for pregnancy test, result positive (principal); O26.899 Other specified pregnancy related conditions, unspecified trimester; Z87.59 Personal history of other complications of pregnancy, childbirth and the puerperium; O99.330 Smoking (tobacco) complicating pregnancy, unspecified trimester

== ENCOUNTER → 2019-06-17 | Outpatient (CLI) | payer OTHER | LOC: M LAB 07:20 | PROVIDERS: ATTEND Physician Assistant Medical | DX: Z32.01 Encounter for pregnancy test, result positive (principal); Z3A.00 Weeks of gestation of pregnancy not specified ==

== ENCOUNTER 2019-06-29 16:51 | Emergency (ER) | payer OTHER ==
[~2019-06-29] VITALS: Ht 177.8 cm; Wt 75.8 kg
[2019-06-29 19:27] VITALS: BP 123/79
[2019-06-29] MEDS ORDERED: NYST1POW9 TOP (19:38)
[2019-06-29] MEDS ORDERED: PRED20TA PO (19:38)
== END 2019-06-29 19:50 | disposition home or self-care (01) ==
LOC: M ED 16:51
DX: B37.2 Candidiasis of skin and nail (principal); B35.4 Tinea corporis; F17.200 Nicotine dependence, unspecified, uncomplicated

== ENCOUNTER 2019-07-17 10:20 | Inpatient (IN) | payer OTHER ==
[~2019-07-17] VITALS: Ht 170.2 cm; Wt 64.0 kg
[~2019-07-17 10:20] MED LIST changes: +NYST1POW9 TOP; +PRED20TA PO
[2019-07-17 11:00] LABS: HEMATOCRIT 38.3 % (36.0-47.0); HEMOGLOBIN 12.8 g/dl (12.0-15.5); MEAN CORPUSCULAR HEMOGLOBIN 31.4 pg (27.0-33.0); MEAN CORPUSCULAR HGB CONC 33.4 g/dl (32.0-36.5); MEAN CORPUSCULAR VOLUME 93.9 fl (80.0-96.0); PLATELET COUNT, AUTOMATED 185 10^3/uL (150-450); RED BLOOD COUNT 4.08 10^6/uL (4.00-5.40); WHITE BLOOD COUNT 6.1 10^3/uL (4.0-10.0)
[2019-07-17 11:16] LABS: HCG, SERUM QUALITATIVE NEGATIVE (NEGATIVE)
[2019-07-17 11:45] LABS: ACETAMINOPHEN LEVEL < 2.0 UG/ML (10.0-30.0); ALBUMIN 3.7 GM/DL (3.2-5.2); ALT/SGPT 18 U/L (12-78); BILIRUBIN,DIRECT 0.1 MG/DL (0.0-0.2); BILIRUBIN,TOTAL 0.4 MG/DL (0.2-1.0); BLOOD UREA NITROGEN 15 MG/DL (7-18); CALCIUM LEVEL 9.1 MG/DL (8.5-10.1); CARBON DIOXIDE LEVEL 26 MEQ/L (21-32); CHLORIDE LEVEL 109 MEQ/L (98-107); CREATININE FOR GFR 0.81 MG/DL (0.55-1.30); ETHYL ALCOHOL (ETHANOL) < 0.003 % (0.000-0.010); GLUCOSE, FASTING 80 MG/DL (70-100); POTASSIUM SERUM 3.7 MEQ/L (3.5-5.1); SALICYLATE LEVEL < 1.7 MG/DL (5.0-30.0); SODIUM LEVEL 142 MEQ/L (136-145); THYROID STIMULATING HORMONE 0.531 uIU/ML (0.463-3.98); TOTAL PROTEIN 7.2 GM/DL (6.4-8.2)
[2019-07-17 12:10] LABS: AMPHETAMINES LEVEL URINE NEGATIVE (NEGATIVE); BARBITURATES URINE NEGATIVE (NEGATIVE); BENZODIAZEPINES URINE NEGATIVE (NEGATIVE); CANNABINOIDS URINE NEGATIVE (NEGATIVE); METHADONE URINE NEGATIVE (NEGATIVE); OPIATES URINE NEGATIVE (NEGATIVE); PHENCYCLIDINE URINE NEGATIVE (NEGATIVE)
[2019-07-17 12:20] LABS: COCAINE METABOLITE URINE NEGATIVE (NEGATIVE)
[2019-07-17] MEDS ORDERED: MOM 30ML SUSPENSION UDC PO PRN (14:15)
[2019-07-17] MEDS ORDERED: MAALOX 30 ML SUSP *UDC PO PRN (14:15)
[2019-07-17] MEDS ORDERED: ACETAMINOPHEN TAB 650MG DOSE (2X325MG) PO PRN (14:15)
[2019-07-17 16:20] VITALS: BP 126/62
[2019-07-18 06:34] VITALS: BP 123/81
--- NOTE | 2019-07-18 09:53 | MHHPEPDOC ---
General Date Of Admission: Jul 17, 2019 Legal Status: 9.39 Chief Complaint "I was having suicidal thoughts" History of Present Illness HISTORY OF THE PRESENT ILLNESS: Patient is a 18 -year-old , female, who was referred to the ED here after presenting to [facility] as a walk-in reporting "Stress. Depression and having thoughts of suicide." She reported she has been having a hard time balancing everything and feels like she just can't handle it. She reports stressors with work and home life. She reported that her and her have been having marital problems but did not elaborate. Despite having no suicidal plan, the patient states that she does not feel safe to be outside of the hospital. She was fairly guarded in the ED and did not desire to elaborate on her current situation. She did mention she has been worried about her father in [place] because he is in the hospital in [place] having suffered some kind of surgical complications. She admitted to being non-compliant with medications for some time. She has not been sleeping much over the last couple of weeks. She has been avoiding going to work whenever possible by scheduling appointments anywhere she can, but would not elaborate much further regarding those stressors. She admitted to strong thoughts of suicide leading to her walk- in at [facility]. Psychiatric Review of Systems Depression (2 or more weeks): depressed mood, anhedonia, insomnia/hypersomnia, decreased energy, difficulty concentrating, suicidal thoughts Ana (4 or more days of): denies Psychosis: denies PTSD: denies Anxiety: stressor related anxiety Past Psychiatric History Previous Psychiatric Diagnosis: Bulimia, anxiety, depression Previous Psychiatric Admissions: several in [place] would not give details, [facility] November 21-November 27, 2018 Suicide Attempts: 2 SI with intent while in High school, would not give details stating she didn't remember in the ED and with me Psychiatric Follow-up: [facility] Psychiatric medications: effexor xr 37.5mg daily for mood and anxiety, vistaril 10mg q6hr prn anxiety, trazodone 50mg qhs prn insomnia. Has also tried Prozac 20mg in the past before switching to effexor Past Medical History Head Injury: No Seizures: No Hospitalizations: No Surgeries: No Family Medical/Psychiatric HX Medical Problems noncontributory Psychiatric Disorders: No Addiction: No Suicide Attemps/Completions: No Addiction History denies Social History Childhood: Born and Raised [place], 2 parent home, 5 siblings (1 older and 4 younger), moved to [place] at 15. Good childhood. 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, E3, dental tech Social Support: friends, family Legal: denies Marital: for almost 4 months, her is also Mental Status Examination General Appearance: disheveled, appears stated age, hospital scubs/clothing Build: average Demeanor: withdrawn, guarded, very figety Eye Contact: fair Activity: anxious Behavior: cooperative, restless, withdrawn Speech: clear, slow, low in volume, non-spontaneous Mood: depressed, anxious Mood "depressed, stressed" Affect: appropriate, congruent, anxious Thought Process: logical/linear, intact Thought Content (Delusions): other (reports SI, Denies HI/AVH) Thought Content (Other): guarded Thought Content (Aggressive): none reported Perception (Hallucinations): none reported Perception (Other): none reported Cognition (Impairment of): none reported Cognition(Intelligence Est.): average Oriented: Awake, Alert, Oriented times three Insight: poor Judgment: Poor Psychosis: Denies Diagnoses Adjustment disorder with depression and anxiety r/o Major depressive disorder Anxiety, unspecified likely situational/stressor related A-FIB/CHADSVASC A-FIB History Current/History of A-Fib/PAF?: No Assessment She reports she was going to go to [facility] but they were too crowded so they told her to come here. She reports having these thoughts for the last 3 days straight. She reports she came here because she had a big breakdown and has been off her meds. She reports he breakdown is her "hitting a low point and needing to reach out." She reports having stressors at work, with health in her family and marriage problems. She says the combination of these three has been overwhelming. Regarding work, she reports she doesn't want to talk about it. Regarding the family health problems, she states her dad was having major surgery to remove a tumor and had complications and is still in the hospital in [place]. Regarding her marital problems, she states that work has had a big influence on her relationship and they have been having work related arguments. Today the patient "feels better but without any meds it is hard for me." States she was on effexor xr in the past when here which was beneficial but then "stopped working" when she left and was never increased. Restart effexor xr at 75mg daily and start abilify 2.5mg daily to augment effexor to treatment mood and anxiety, risks/benefits discussed and pt agreeable. She reports her sleep has been really poor and she definitely wants to start taking her sleep medication again, because she hasn't taken it in a long time. Encouraged to take trazodone prn insomnia tonight. She said when she started seeing a new doctor outpatient at [facility] after being discharged from here in November they switched her medication to something different, and when she didn't feel like it was helping she stopped taking it. She does not know what medication that was. She has gone to two group sessions and states "they're really nice." She plans to continue going to group sessions. She still reports suicidal thoughts without plan. Patient was guarded and withdrawn with minimal eye contact. She did not elaborate much regarding her stressors. It appears work has been her biggest stressor though she would not explain further regarding this stressor. Patient Denies HI/VH, reports SI w/o plan, feels safe here. Initial Treatment Plan 1. Patient was admitted on a 9.39 status. 2. Complete history was obtained. 3. With patients permission, family will be contacted and database will be expanded. 4. Patients medication regimen will be reviewed and changed accordingly. 5. Patient will be provided with protected environment. 6. Patient will be treated with individual, group, and milieu therapies. 7. Patient will receive supportive psych-education. 8. Discharge planning will commence immediately. 9. Outpatient follow-up treatment will be strongly recommended. 10. The initial treatment plan will focus initially on: * Depression. * Risk for suicide. 11. effexor xr 75mg daily, abilify 2.5mg daily for antidepressant augmentation ESTIMATED LENGTH OF STAY: 7-10 DAYS. TIME SPENT COUNSELING AND COORDINATING INITIAL CARE: 60 minutes. Vital Signs Vital Signs Date Time Temp Pulse Resp B/P (MAP) Pulse Ox O2 Delivery O2 Flow Rate FiO2 07/18/19 06:34 98.8 87 18 123/81 (95) 07/17/19 16:20 100 07/17/19 15:58 Room Air Laboratory Data 24H Labs Laboratory Tests 2 07/17/19 10:40: Nucleated Red Blood Cells % (auto) 0.0, Anion Gap 7L, Calcium Level 9.1, Aspartate Amino Transf (AST/SGOT) 15, Alanine Aminotransferase (ALT/SGPT) 18, Alkaline Phosphatase 59, Total Bilirubin 0.4, Direct Bilirubin 0.1, Total Protein 7.2, Albumin 3.7, Albumin/Globulin Ratio 1.06, Thyroid Stimulating Hormone (TSH) 0.531, Human Chorionic Gonadotropin, Qual NEGATIVE, Salicylates Level < 1.7L, Urine Amphetamines Screen NEGATIVE, Urine Benzodiazepines Screen NEGATIVE, Urine Opiates Screen NEGATIVE, Urine Methadone Screen NEGATIVE, Acetaminophen Level < 2.0L, Urine Barbiturates Screen NEGATIVE, Urine Phencyclidine Screen NEGATIVE, Urine Cocaine Metabolite Screen NEGATIVE, Urine Cannabinoids Screen NEGATIVE, Ethyl Alcohol Level < 0.003 CBC/BMP Laboratory Tests 07/17/19 10:40 Red Blood Count 4.08, Mean Corpuscular Volume 93.9, Mean Corpuscular Hemoglobin 31.4, Mean Corpuscular Hemoglobin Concent 33.4, Red Cell Distribution Width 11.5 Medications No Active Prescriptions or Reported Meds Allergies Coded Allergies: No Known Allergies (Unverified , 02/06/19) KAVYA JOE DO Jul 18, 2019 9:53 am
[2019-07-18] MEDS ORDERED: VENLAFAXINE **XR** 75MG CAPSULE PO ONE (12:00)
--- NOTE | 2019-07-18 15:03 | HPEPDOC ---
General Date of Admission Jul 17, 2019 at 14:14 Date of Service: Jul 18, 2019 Chief Complaint The patient is a 18-year-old female who presented to the emergency room with symptoms of depression History of Present Illness Patient is a 18-year-old female with no significant past medical history who has presented to the emergency room with complaints of depression. Patient was admitted to the inpatient mental health unit under the care of psychiatry. . Hospitalist service was consult for medical screening evaluation. Currently patient denies any headache, nausea, vomiting, chest pain, shortness of breath, palpitations, abdominal pain, constipation, diarrhea, or urinary discomfort. He denies any fevers or chills over the last 2 weeks. Report that her appetite has been fairly normal and denying any significant change in the. 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 Review of Systems Other systems 10 point review of systems complete, all negative otherwise stated in HPI Vital Signs - Vitals: BP 123/81, HR 94, RR 18, Sat 100%RA, Temp 98.8F - General: Lying in bed, No acute distress, Speaking in full sentences, AAOx3 - HEENT: NC, AT, PERRLA, EOMI - CVS: RRR, +S1S2 - Lungs: Fair air entry bilaterally, No appreciable wheezing / rales / rhonchi - Abdomen: Soft, Non-distended, Non-tender - Extremities: No lower extremity edema, No calf tenderness - Neuro: No focal motor or sensory deficit - Skin: No visible rashes Plan / VTE VTE Prophylaxis Ordered?: Yes Plan Plan Depression - Is currently being managed by psychiatry No significant past medical history - Labs reviewed and were benign DVT prophylaxis - c/w early ambulation Female global transportation manager was present throughout the duration of his history and physical examination Please reconsult as needed SAMARIA FRANKS MD Jul 18, 2019 15:03
[2019-07-18 18:50] VITALS: BP 110/53
[2019-07-18] MEDS: traZODone 50 MG TAB PO PRN (20:00)
[2019-07-19 06:06] VITALS: BP 103/52
[2019-07-19] MEDS: VENLAFAXINE **XR** 75MG CAPSULE PO SCH (08:26)
--- NOTE | 2019-07-19 09:52 | MHIPNPDOC ---
[facility] Progress Note Progress Note DATE OF SERVICE: 07/19/19 HISTORY: Patient is a 18 -year-old , female, who was referred to the ED here after presenting to [facility] as a walk-in reporting "Stress. Depression and having thoughts of suicide." She reported she has been having a hard time balancing everything and feels like she just can't handle it. She reports stressors with work and home life. She reported that her and her have been having marital problems but did not elaborate. Despite having no suicidal plan, the patient states that she does not feel safe to be outside of the hospital. She was fairly guarded in the ED and did not desire to elaborate on her current situation. She did mention she has been worried about her father in [place] because he is in the hospital in [place] having suffered some kind of surgical complications. She admitted to being non-compliant with medications for some time. She has not been sleeping much over the last couple of weeks. She has been avoiding going to work whenever possible by scheduling appointments anywhere she can, but would not elaborate much further regarding those stressors. She admitted to strong thoughts of suicide leading to her walk-in at [facility]. VITAL SIGNS: See below. NEW TEST RESULTS: see below. CURRENT MEDICATIONS: See below. MENTAL STATUS EXAMINATION: General Appearance: disheveled, appears stated age, hospital scrubs/clothing Build: average Demeanor: withdrawn, guarded, arms in shirt to stay warm Eye Contact: fair Activity: average Behavior: cooperative, restless, withdrawn Speech: clear, slow, low in volume, non-spontaneous Mood: less depressed Mood "alright" Affect: appropriate, congruent Thought Process: logical/linear, intact Thought Content (Delusions): other (reports SI, Denies HI/AVH) Thought Content (Other): guarded Thought Content (Aggressive): none reported Perception (Hallucinations): none reported Perception (Other): none reported Cognition (Impairment of): none reported Cognition(Intelligence Est.): average Oriented: Awake, Alert, Oriented times three Insight: poor Judgment: Poor Psychosis: Denies DIAGNOSES: 1. Adjustment disorder with depression and anxiety r/o Major depressive disorder 2. Anxiety, unspecified likely situational/stressor related ASSESSMENT:Pt seen and states that her mood is better and feels her medication is beneficial, tolerating them well. Endorses occasional panic attacks and is agreeable to starting vistaril prn anxiety which she's taken in the past and found beneficial. Per pt Brad, pt is manipulative and lied on admission as she did not actually go to [facility] prior as a walk-in, has been failing to go to work, and is currently being med boarded out of the due to her job performance. They feel that pt will be safe to be discharged on Monday and go to the field with them for work duties.. States she's being social on the milieu which is beneficial. States she slept well last night. Feels she is tolerating her medications and they're beneficial. She is attending groups and finding them helpful. She denies SI/HI, hallucinations, delusions. Pt feels safe here. MANAGEMENT PLAN: continue plan 1. effexor xr 75mg daily 2. abilify 2.5mg daily for antidepressant augmentation 3. vistaril 50mg q6hr prn anxiety/agitation TIME SPENT: 30 minutes. Vital Signs Vital Signs Date Time Temp Pulse Resp B/P (MAP) Pulse Ox O2 Delivery O2 Flow Rate FiO2 07/19/19 06:06 99.4 72 16 103/52 (69) 07/17/19 16:20 100 07/17/19 15:58 Room Air Current Medications Current Medications Medications (Trade) Dose Ordered Sig/Mona Route PRN Reason Start Time Stop Time Status Last Admin Dose Admin Acetaminophen (Tylenol Tab) 650 mg Q6HP PRN PO HEADACHE or DISCOMFORT 07/17/19 14:15 Al Hydrox/Mg Hydrox/Simethicone (Mylanta) 30 ml Q4HP PRN PO HEARTBURN/INDIGESTION 07/17/19 14:15 Aripiprazole (AbiLIFY) 2.5 mg DAILY PO 07/19/19 09:00 07/19/19 08:27 Home Med (Med Rec Complete!) ASDIRECTED XX 07/17/19 13:15 07/17/19 13:19 DC Magnesium Hydroxide (Milk Of Magnesia) 30 ml DAILYPRN PRN PO CONSTIPATION 07/17/19 14:15 Trazodone HCl (Desyrel) 50 mg QHSP PRN PO INSOMNIA 07/17/19 14:15 07/18/19 20:00 Venlafaxine HCl (Effexor Xr) 75 mg DAILY PO 07/19/19 09:00 07/19/19 08:26 Allergies Coded Allergies: No Known Allergies (Unverified , 02/06/19) KAVYA JOE DO Jul 19, 2019 9:52 am
[2019-07-19 18:28] VITALS: BP 118/58
[2019-07-19] MEDS: traZODone 50 MG TAB PO PRN (20:38)
[2019-07-19] MEDS: hydrOXYzine 50 MG TAB PO PRN (20:38)
[2019-07-20 06:37] VITALS: BP 107/54
[2019-07-20] MEDS: VENLAFAXINE **XR** 75MG CAPSULE PO SCH (09:20)
--- NOTE | 2019-07-20 13:40 | MHIPNPDOC ---
[facility] Progress Note Progress Note Inpatient Progress Note Nikki Gibbs MRN: N/A Date of : N/A Date of Service: 07/20/2019 History of Present Illness The patient, a 18-year-old woman, is brought to the emergency room after being brought in by [facility] for reported stress, depression and suicidal thoughts. She reportedly had difficulty balancing her time and had become severely depressed. Interval History The patient is met with today. She describes that she is making some improvements on the venlafaxine-Abilify combination. She had multiple questions about the medications and their side effects. She reports that she has had less difficulty with her energy, improved mood and less demotivated time on the unit. She has had no major behavioral problems over the evening and has done well. Review Of Systems General: Denies fever or weight changes Cardiovascular: Denies Chest pain or palpitations GI: Denies Nausea, vomiting, or bowel changes Respiratory: Denies shortness of breath or cough Neuro: Described some mild twitching, but no tremors or dizziness Derm: Denies any rashes or pruritus : Denies any dysuria or sexual dysfunction MSK: Denies any muscle tightness or stiffness HEENT: Denies any vision changes or headaches Heme/Lymph: Denies any bruising or bleeding Endo: Denies any cold/heat intolerance or water intake changes Psychotherapy None on this visit. Vital Signs Reviewed. Mental Status Examination General: Well dressed with good hygiene Speech: Spontaneous and fluid Thought processes: Linear and logical MSK: Smooth and coordinated gait, no signs of tremors or involuntary orofacial movements Thought content: Future orientated Abstract reasoning, and computation: Intact Description of associations: Intact Description of abnormal or psychotic thoughts: Denies any suicidal or homicidal ideation. Denies any auditory or visual hallucinations. Does not appear to be responding to internal stimuli. Does not appear to be endorsing any bizarre or paranoid ideation. Judgment: fair Insight: fair Orientation: Alert and orientated 3 Cognition: Grossly normal Recent and remote memory: Intact Attention span and concentration: Intact Fund of knowledge: Adequate Mood: "okay" Affect: Euthymic with a full range Diagnoses Unspecified depressive disorder. Rule out MDD versus adjustment with anxiety. Assessment and Plan Continue medications as below. Disposition Patient will need further inpatient admission in order to titrate her medicati ons to full effect. Time Spent 30 minutes with greater than 50% of time spent on counseling/coordination of care. Monday Vital Signs Vital Signs Date Time Temp Pulse Resp B/P (MAP) Pulse Ox O2 Delivery O2 Flow Rate FiO2 07/20/19 08:05 Room Air 07/20/19 06:37 99.4 69 18 107/54 (71) 07/17/19 16:20 100 Current Medications Current Medications Medications (Trade) Dose Ordered Sig/Mona Route PRN Reason Start Time Stop Time Status Last Admin Dose Admin Acetaminophen (Tylenol Tab) 650 mg Q6HP PRN PO HEADACHE or DISCOMFORT 07/17/19 14:15 Al Hydrox/Mg Hydrox/Simethicone (Mylanta) 30 ml Q4HP PRN PO HEARTBURN/INDIGESTION 07/17/19 14:15 Aripiprazole (AbiLIFY) 2.5 mg DAILY PO 07/19/19 09:00 07/20/19 09:21 Home Med (Med Rec Complete!) ASDIRECTED XX 07/17/19 13:15 07/17/19 13:19 DC Hydroxyzine HCl (Atarax) 50 mg Q6HP PRN PO ANXIETY/AGITATION 07/19/19 11:45 07/19/19 20:38 Magnesium Hydroxide (Milk Of Magnesia) 30 ml DAILYPRN PRN PO CONSTIPATION 07/17/19 14:15 Trazodone HCl (Desyrel) 50 mg QHSP PRN PO INSOMNIA 07/17/19 14:15 07/19/19 20:38 Venlafaxine HCl (Effexor Xr) 75 mg DAILY PO 07/19/19 09:00 07/20/19 09:20 Allergies Coded Allergies: No Known Allergies (Unverified , 02/06/19) GLENNA PRIETO DO Jul 20, 2019 13:40
[2019-07-20 15:54] VITALS: BP 142/86
[2019-07-20] MEDS ORDERED: ONDANSETRON 4 MG TAB (S0181) PO PRN (18:45)
[2019-07-20 18:53] VITALS: BP 133/76
[2019-07-20] MEDS ORDERED: ONDANSETRON 4 MG ORAL DISINTEGRATING TAB (Q0162 PER 1MG) PO PRN (19:00)
[2019-07-21 06:40] VITALS: BP 110/65
[2019-07-21] MEDS: VENLAFAXINE **XR** 75MG CAPSULE PO SCH (11:27)
--- NOTE | 2019-07-21 13:00 | MHIPNPDOC ---
[facility] Progress Note Progress Note Inpatient Progress Note Nikki Gibbs MRN: N/A Date of : N/A Date of Service: 07/21/2019 History of Present Illness The patient, a 18-year-old woman, is brought to the emergency room after being brought in by Behavioral Health for reported stress, depression and suicidal thoughts. She reportedly had difficulty balancing her time and had become severely depressed. Interval History The patient reports that she is doing well on the unit, has had no significant problems with her mood. She stated her energy, sleep, concentration, and focus, as well as, motivation are all improved. She's been attending groups well with no major behavioral problems or other issues on the unit. Review Of Systems General: Denies fever or weight changes Cardiovascular: Denies Chest pain or palpitations GI: Denies Nausea, vomiting, or bowel changes Respiratory: Denies shortness of breath or cough Neuro: Denies any twitching, tremors, or dizziness today. Derm: Denies any rashes or pruritus : Denies any dysuria or sexual dysfunction MSK: Denies any muscle tightness or stiffness HEENT: Denies any vision changes or headaches Heme/Lymph: Denies any bruising or bleeding Endo: Denies any cold/heat intolerance or water intake changes Psychotherapy None on this visit. Vital Signs Reviewed. Mental Status Examination General: Well dressed with good hygiene Speech: Spontaneous and fluid Thought processes: Linear and logical MSK: Smooth and coordinated gait, no signs of tremors or involuntary orofacial movements Thought content: Future orientated Abstract reasoning, and computation: Intact Description of associations: Intact Description of abnormal or psychotic thoughts: Denies any suicidal or homicidal ideation. Denies any auditory or visual hallucinations. Does not appear to be responding to internal stimuli. Does not appear to be endorsing any bizarre or paranoid ideation. Judgment: fair Insight: fair Orientation: Alert and orientated 3 Cognition: Grossly normal Recent and remote memory: Intact Attention span and concentration: Intact Fund of knowledge: Adequate Mood: "okay" Affect: Euthymic with a full range Diagnoses Unspecified depressive disorder. Rule out MDD versus adjustment with anxiety. Assessment and Plan Continue medications as below. Disposition Patient will need further inpatient admission in order to titrate her medications to full effect. Time Spent 20 minutes [id number]. Monday Vital Signs Vital Signs Date Time Temp Pulse Resp B/P (MAP) Pulse Ox O2 Delivery O2 Flow Rate FiO2 07/21/19 08:03 Room Air 07/21/19 06:40 98.7 83 16 110/65 (80) 07/17/19 16:20 100 Current Medications Current Medications Medications (Trade) Dose Ordered Sig/Mona Route PRN Reason Start Time Stop Time Status Last Admin Dose Admin Acetaminophen (Tylenol Tab) 650 mg Q6HP PRN PO HEADACHE or DISCOMFORT 07/17/19 14:15 Al Hydrox/Mg Hydrox/Simethicone (Mylanta) 30 ml Q4HP PRN PO HEARTBURN/INDIGESTION 07/17/19 14:15 Aripiprazole (AbiLIFY) 2.5 mg DAILY PO 07/19/19 09:00 07/21/19 11:27 Home Med (Med Rec Complete!) ASDIRECTED XX 07/17/19 13:15 07/17/19 13:19 DC Hydroxyzine HCl (Atarax) 50 mg Q6HP PRN PO ANXIETY/AGITATION 07/19/19 11:45 07/19/19 20:38 Magnesium Hydroxide (Milk Of Magnesia) 30 ml DAILYPRN PRN PO CONSTIPATION 07/17/19 14:15 Ondansetron HCl (Zofran Odt) 4 mg Q6HP PRN PO NAUSEA OR VOMITING 07/20/19 19:00 07/20/19 18:52 Ondansetron HCl (Zofran) 4 mg Q6HP PRN PO NAUSEA OR VOMITING 07/20/19 18:45 Cancel Trazodone HCl (Desyrel) 50 mg QHSP PRN PO INSOMNIA 07/17/19 14:15 07/19/19 20:38 Venlafaxine HCl (Effexor Xr) 75 mg DAILY PO 07/19/19 09:00 07/21/19 11:27 Allergies Coded Allergies: No Known Allergies (Unverified , 02/06/19) GLENNA PRIETO DO Jul 21, 2019 13:00
[2019-07-21 15:41] VITALS: BP 119/67
[2019-07-21] MEDS: traZODone 50 MG TAB PO PRN (19:34)
[2019-07-21] MEDS: hydrOXYzine 50 MG TAB PO PRN (19:34)
[2019-07-21] MEDS ORDERED: chlorproMAZINE INJ 50MG/2ML AMP (J3230) IM ONE (23:30)
[2019-07-22 06:45] VITALS: BP 121/83
[2019-07-22] MEDS: VENLAFAXINE **XR** 75MG CAPSULE PO SCH (08:15)
[2019-07-22] MEDS: hydrOXYzine 50 MG TAB PO PRN (08:15)
[2019-07-22] MEDS ORDERED: TRAZ-252 PO (08:38)
[2019-07-22] MEDS ORDERED: ABIL1TAB11 PO (08:38)
[2019-07-22] MEDS ORDERED: HYDR50TA70 PO (08:38)
[2019-07-22] MEDS ORDERED: VENL75CA47 PO (08:38)
--- NOTE | 2019-07-22 08:38 | MHDSPDOC ---
[facility] Discharge Summary Discharge Summary DATE OF ADMISSION: Jul 17, 2019 at 2:14 pm DATE OF DISCHARGE: Jul 22, 2019 DISCHARGE DIAGNOSES: Adjustment disorder with depression and anxiety r/o Major depressive disorder Anxiety, unspecified likely situational/stressor related REASON FOR ADMISSION: Patient is a 18 -year-old , female, who was referred to the ED here after presenting to [facility] as a walk-in reporting "Stress. Depression and having thoughts of suicide." She reported she has been having a hard time balancing everything and feels like she just can't handle it. She reports stressors with work and home life. She reported that her and her have been having marital problems but did not elaborate. Despite having no suicidal plan, the patient states that she does not feel safe to be outside of the hospital. She was fairly guarded in the ED and did not desire to elaborate on her current situation. She did mention she has been worried about her father in [place] because he is in the hospital in [place] having suffered some kind of surgical complications. She admitted to being non-compliant with medications for some time. She has not been sleeping much over the last couple of weeks. She has been avoiding going to work whenever possible by scheduling appointments anywhere she can, but would not elaborate much further regarding those stressors. She admitted to strong thoughts of suicide leading to her walk- in at [facility]. CONSULTANTS INVOLVED: none TREATMENT AND PROGRESS ON THE UNIT : Pt was admitted to [facility], seen for psychi atric assessment and started on effexor xr 75mg daily for mood and abilify 2.5mg daily for antidepressant augmentation. She was provided vistaril 50mg q6hr prn anxiety and trazodone 50mg qhs prn insomnia. Pt found her medications beneficial and tolerated them well. She attended groups daily during her stay. Her symptoms improved with treatment. On day of discharge she denied d epression, anxiety, insomnia, SI/HI, hallucinations, delusions. She was discharged home after Brad meeting with follow-up at [facility]. She felt safe for discharge. DISCHARGE ASSESSMENT: Pt seen and states that her mood is "good" and that she's looking forward to going home today with her Brad. Pt states she feels her medication is beneficial, tolerating them well. She denies anxiety and panic attacks and since starting vistaril prn anxiety and is finding it beneficial, tolerating it well. Per pt Brad, pt is manipulative and lied on admission as she did not actually go to [facility] prior as a walk-in, has been failing to go to work, and is currently being med boarded out of the due to her job performance. They feel that pt will be safe to be discharged on Monday and go to the field with them for work duties.. States she's being social on the milieu which is beneficial. States she slept well last night. Feels she is tolerating her medications and they're beneficial. She is attending groups and finding them helpful. She denies SI/HI, hallucinations, delusions. Pt feels safe to be d/c with her Brad. MENTAL STATUS EXAMINATION ON DISCHARGE: General Appearance: clean, appears stated age, own clothing Build: average Demeanor: cooperative Eye Contact: good Activity: average Behavior: cooperative Speech: clear, reg volume, spontaneous Mood: euthymic, full range Mood "good" Affect: appropriate, congruent Thought Process: logical/linear, intact Thought Content (Delusions): other (reports SI, Denies HI/AVH) Thought Content (Other): guarded Thought Content (Aggressive): none reported Perception (Hallucinations): none reported Perception (Other): none reported Cognition (Impairment of): none reported Cognition(Intelligence Est.): average Oriented: Awake, Alert, Oriented times three Insight: good Judgment: good Psychosis: Denies MEDICATIONS ON DISCHARGE: 1. effexor xr 75mg daily 2. abilify 2.5mg daily for antidepressant augmentation 3. vistaril 50mg q6hr prn anxiety/agitation 4. trazodone 50mg qhs prn insomnia PLAN/FOLLOWUP ARRANGEMENTS: d/c home with Brad with follow-up at [facility]. The amount of time spent in the coordination of care for this patient was approximately 30 minutes. Vital Signs/I&Os Vital Signs Date Time Temp Pulse Resp B/P (MAP) Pulse Ox O2 Delivery O2 Flow Rate FiO2 07/22/19 06:45 97.9 61 12 121/83 (96) 07/21/19 08:03 Room Air 07/17/19 16:20 100 Medications No Active Prescriptions or Reported Meds Allergies Coded Allergies: No Known Allergies (Unverified , 02/06/19) KAVYA JOE DO Jul 22, 2019 8:23 am
== END 2019-07-22 11:20 | disposition home or self-care (01) | DRG 882 ==
LOC: M ED 10:20 → M ED INP 14:14 → M PSY 16:18
PROVIDERS: ADMIT Psychiatry & Neurology Addiction Medicine; ATTEND Psychiatry & Neurology Psychiatry
DX: F43.23 Adjustment disorder with mixed anxiety and depressed mood (principal); Z63.0 Problems in relationship with spouse or partner; Z91.14 Patient's other noncompliance with medication regimen; F32.9 Major depressive disorder, single episode, unspecified; F41.9 Anxiety disorder, unspecified

== ENCOUNTER 2019-08-15 12:25 | Emergency (ER) | payer OTHER ==
[~2019-08-15] VITALS: Ht 177.8 cm; Wt 81.5 kg
[~2019-08-15 12:25] MED LIST changes: +ABIL1TAB11 PO; +HYDR50TA70 PO; +TRAZ-252 PO; +VENL75CA47 PO
[2019-08-15] MEDS ORDERED: NS 1,000 ML IV ONE (13:15)
[2019-08-15 13:35] LABS: BASO % 0.4 % (0.0-1.0); EOS # 0.6 10^3/uL (0.0-0.5); EOS % 10.8 % (0.0-3.0); HEMATOCRIT 41.5 % (36.0-47.0); HEMOGLOBIN 13.7 g/dl (12.0-15.5); LYMPH # 2.2 10^3/uL (1.5-5.0); LYMPH % 42.7 % (24.0-44.0); MEAN CORPUSCULAR HEMOGLOBIN 31.4 pg (27.0-33.0); MEAN CORPUSCULAR VOLUME 95.2 fl (80.0-96.0); MONO # 0.4 10^3/uL (0.0-0.8); MONO % 7.1 % (0.0-5.0); NEUTROPHILS % 38.8 % (36.0-66.0); PLATELET COUNT, AUTOMATED 214 10^3/uL (150-450); RED BLOOD COUNT 4.36 10^6/uL (4.00-5.40); WHITE BLOOD COUNT 5.1 10^3/uL (4.0-10.0)
[2019-08-15 13:52] LABS: HCG, SERUM QUALITATIVE NEGATIVE (NEGATIVE)
[2019-08-15 14:08] LABS: BLOOD UREA NITROGEN 21 MG/DL (7-18); CALCIUM LEVEL 9.1 MG/DL (8.5-10.1); CARBON DIOXIDE LEVEL 29 MEQ/L (21-32); CHLORIDE LEVEL 105 MEQ/L (98-107); CREATININE FOR GFR 0.84 MG/DL (0.55-1.30); GLUCOSE, FASTING 97 MG/DL (70-100); POTASSIUM SERUM 4.3 MEQ/L (3.5-5.1); SODIUM LEVEL 139 MEQ/L (136-145); THYROID STIMULATING HORMONE 0.558 uIU/ML (0.463-3.98)
[2019-08-15 16:21] VITALS: BP 124/73
--- NOTE | 2019-08-16 21:19 | ECGEPIP ---
[facility] - ED Test Date: 2019-08-15 Pat Name: REILLY HUBER Department: Room: - Gender: Female Proof Reader: : 2000 Requested By: TAMMY Carey Order Number: [id number] [place] MD: Shannon Sparks Measurements Intervals [place] Rate: 90 P: 48 ND: 153 QRS: 55 QRSD: 77 T: 47 QT: 362 QTc: 444 Interpretive Statements SINUS RHYTHM POSSIBLE LEFT ATRIAL ENLARGEMENT T WAVE ABNORMALITY SEEN 05/01/19 RESOLVED Electronically Signed on 08-16-2019 21:19:39 EDT by Shannon Sparks
== END 2019-08-15 15:18 | disposition home or self-care (01) ==
LOC: M ED 12:25
DX: R55 Syncope and collapse (principal); F50.2 Bulimia nervosa; F17.200 Nicotine dependence, unspecified, uncomplicated; Z79.899 Other long term (current) drug therapy

== ENCOUNTER 2019-10-11 07:40 | Emergency (ER) | payer OTHER, SELFPAY ==
[~2019-10-11] VITALS: Ht 177.8 cm; Wt 86.1 kg
[~2019-10-11 07:40] MED LIST changes: +FLUO20CA20 PO; -FLUO20CA8 PO; +ONDA-83 PO; -ONDA4TAB5 PO
[2019-10-11] MEDS ORDERED: NS 1,000 ML IV ONE (08:00)
[2019-10-11 08:28] LABS: BASO % 0.2 % (0.0-1.0); EOS # 0.6 10^3/uL (0.0-0.5); EOS % 11.4 % (0.0-3.0); HEMATOCRIT 40.4 % (36.0-47.0); HEMOGLOBIN 13.3 g/dl (12.0-15.5); LYMPH # 2.1 10^3/uL (1.5-5.0); LYMPH % 42.9 % (24.0-44.0); MEAN CORPUSCULAR HEMOGLOBIN 30.9 pg (27.0-33.0); MEAN CORPUSCULAR HGB CONC 32.9 g/dl (32.0-36.5); MEAN CORPUSCULAR VOLUME 93.7 fl (80.0-96.0); MONO # 0.5 10^3/uL (0.0-0.8); MONO % 10.4 % (0.0-5.0); NEUTROPHILS # 1.7 10^3/uL (1.5-8.5); NEUTROPHILS % 34.9 % (36.0-66.0); PLATELET COUNT, AUTOMATED 207 10^3/uL (150-450); RED BLOOD COUNT 4.31 10^6/uL (4.00-5.40); WHITE BLOOD COUNT 4.9 10^3/uL (4.0-10.0)
[2019-10-11 08:57] LABS: ALBUMIN 3.6 GM/DL (3.2-5.2); ALT/SGPT 52 U/L (12-78); BILIRUBIN,DIRECT 0.1 MG/DL (0.0-0.2); BILIRUBIN,TOTAL 0.6 MG/DL (0.2-1.0); BLOOD UREA NITROGEN 9 MG/DL (7-18); CALCIUM LEVEL 8.9 MG/DL (8.5-10.1); CARBON DIOXIDE LEVEL 24 MEQ/L (21-32); CHLORIDE LEVEL 107 MEQ/L (98-107); CK-MB VALUE MASS < 1.0 NG/ML (<3.6); CPK CREATINE PHOSPHOKINASE 126 U/L (26-192); CREATININE FOR GFR 0.77 MG/DL (0.55-1.30); GLUCOSE, FASTING 68 MG/DL (70-100); LIPASE 72 U/L (73-393); MB/CK RELATIVE INDEX 0.79 (< OR =4); SODIUM LEVEL 138 MEQ/L (136-145); TOTAL PROTEIN 7.6 GM/DL (6.4-8.2); TROPONIN I < 0.02 NG/ML (< 0.10)
--- NOTE | 2019-10-11 10:33 | REP ---
PELVIC ULTRASOUND: Real-time sonographic evaluation of the pelvis is performed utilizing transabdominal and endovaginal technique. Uterus measures 8.9 x 3.4 x 4.7 cm. Sac-like structure in the endometrial canal measures 4 mm in diameter possibly representing early intrauterine gestation with estimated gestational age 5 weeks 1 day No yolk sac or pole is seen. Right ovary measures 2.3 x 0.9 x 1.3 cm and left ovary 3.7 x 2.1 x 2.8 cm. Left ovary contains a cystic structure which may represent a corpus luteum 2.5 cm in maximum diameter. There is trace free fluid adjacent to the left ovary. I cannot completely exclude ectopic . Suggest correlation with serial quantitative beta hCG values and followup ultrasound. Electronically Signed by Kishor Viera MD 10/11/2019 04:45 P
[2019-10-11] MEDS ORDERED: NYST1POW9 TOP (11:49)
[2019-10-11 11:51] VITALS: BP 156/62
--- NOTE | 2019-10-11 22:42 | ECGEPIP ---
[facility] - ED Test Date: 2019-10-11 Pat Name: REILLY HUBER Department: Room: - Gender: Female [employer]: : 2000 Requested By: CORNELIA Flores PA-C Order Number: [id number] [place] MD: Jose De Jesus Child Measurements Intervals [place] Rate: 75 P: 50 MI: 161 QRS: 50 QRSD: 82 T: 26 QT: 380 QTc: 426 Interpretive Statements SINUS RHYTHM Similar to tracing done 08-15-19 Electronically Signed on 10-11-2019 22:41:50 EST by Jose De Jesus Child
== END 2019-10-11 11:59 | disposition home or self-care (01) ==
LOC: M ED 07:40
DX: Z32.01 Encounter for pregnancy test, result positive (principal); N83.202 Unspecified ovarian cyst, left side; L30.4 Erythema intertrigo; F33.9 Major depressive disorder, recurrent, unspecified; F41.9 Anxiety disorder, unspecified

== ENCOUNTER → 2019-10-30 | Outpatient (REF) | payer OTHER, SELFPAY ==
[~2019-10-30] MED LIST changes: +PREN27TA3 PO
[2019-10-30 17:51] LABS: HEMATOCRIT 39.2 % (36.0-47.0); HEMOGLOBIN 12.7 g/dl (12.0-15.5); MEAN CORPUSCULAR HEMOGLOBIN 30.1 pg (27.0-33.0); MEAN CORPUSCULAR HGB CONC 32.4 g/dl (32.0-36.5); MEAN CORPUSCULAR VOLUME 92.9 fl (80.0-96.0); PLATELET COUNT, AUTOMATED 203 10^3/uL (150-450); RED BLOOD COUNT 4.22 10^6/uL (4.00-5.40); WHITE BLOOD COUNT 5.1 10^3/uL (4.0-10.0)
[2019-10-30 20:33] LABS: HCG, SERUM QUANTITATIVE 6183 MIU/ML
[2019-11-01 18:11] LABS: RUBELLA IgG QUALITATIVE IMMUNE (IMMUNE)
[2019-11-01 18:40] LABS: HEPATITIS C VIRUS ABY INDEX < 0.0 INDEX (<0.8)
[2019-11-01 18:41] LABS: HIV 1&2 SCREEN CENTAUR NEGATIVE (NEGATIVE)
[2019-11-04 11:40] LABS: HEMOGLOBIN A 97.6 % (96.4-98.8); HEMOGLOBIN A2 2.4 % (1.8-3.2); HGB SOLUBILITY Negative (Negative)
== END ==
LOC: M LAB REF 16:53
PROVIDERS: ATTEND Obstetrics & Gynecology
DX: O36.80X0 Pregnancy with inconclusive fetal viability, not applicable or unspecified (principal); Z3A.00 Weeks of gestation of pregnancy not specified

== ENCOUNTER 2019-11-07 22:45 | Emergency (ER) | payer OTHER, SELFPAY ==
[~2019-11-07] VITALS: Ht 177.8 cm; Wt 84.6 kg
[2019-11-07 22:45] VITALS: BP 128/88
[~2019-11-07 22:45] MED LIST changes: -PREN27TA3 PO
[2019-11-07] MEDS ORDERED: PREN27TA3 PO (22:50)
[2019-11-07 23:26] LABS: BASO % 0.4 % (0.0-1.0); EOS # 0.7 10^3/uL (0.0-0.5); HEMATOCRIT 40.7 % (36.0-47.0); HEMOGLOBIN 13.6 g/dl (12.0-15.5); LYMPH # 2.6 10^3/uL (1.5-5.0); LYMPH % 48.4 % (24.0-44.0); MEAN CORPUSCULAR HEMOGLOBIN 30.6 pg (27.0-33.0); MEAN CORPUSCULAR HGB CONC 33.4 g/dl (32.0-36.5); MEAN CORPUSCULAR VOLUME 91.5 fl (80.0-96.0); MONO # 0.5 10^3/uL (0.0-0.8); MONO % 8.5 % (0.0-5.0); NEUTROPHILS # 1.7 10^3/uL (1.5-8.5); NEUTROPHILS % 30.5 % (36.0-66.0); PLATELET COUNT, AUTOMATED 221 10^3/uL (150-450); RED BLOOD COUNT 4.45 10^6/uL (4.00-5.40); WHITE BLOOD COUNT 5.4 10^3/uL (4.0-10.0)
[2019-11-07 23:47] LABS: BLOOD UREA NITROGEN 14 MG/DL (7-18); CALCIUM LEVEL 9.1 MG/DL (8.5-10.1); CARBON DIOXIDE LEVEL 24 MEQ/L (21-32); CHLORIDE LEVEL 108 MEQ/L (98-107); CREATININE FOR GFR 0.76 MG/DL (0.55-1.30); GLOMERULAR FILTRATION RATE > 60.0 (>60); GLUCOSE, FASTING 96 MG/DL (70-100); SODIUM LEVEL 140 MEQ/L (136-145)
[2019-11-08 01:18] LABS: HCG, SERUM QUANTITATIVE 7352 MIU/ML
== END 2019-11-08 01:33 | disposition home or self-care (01) ==
LOC: M ED 22:45
DX: O20.9 Hemorrhage in early pregnancy, unspecified (principal); Z3A.01 Less than 8 weeks gestation of pregnancy; O99.341 Other mental disorders complicating pregnancy, first trimester; F33.9 Major depressive disorder, recurrent, unspecified; F41.9 Anxiety disorder, unspecified

== ENCOUNTER 2019-11-08 10:00 | Day surgery (SDC) | payer OTHER, SELFPAY ==
[~2019-11-08] VITALS: Ht 172.7 cm; Wt 83.5 kg
[~2019-11-08 10:00] MED LIST changes: +PREN27TA3 PO
[2019-11-08 10:50] LABS: BASO % 0.7 % (0.0-1.0); EOS # 0.6 10^3/uL (0.0-0.5); EOS % 12.8 % (0.0-3.0); HEMATOCRIT 41.5 % (36.0-47.0); HEMOGLOBIN 13.5 g/dl (12.0-15.5); LYMPH % 45.2 % (24.0-44.0); MEAN CORPUSCULAR HGB CONC 32.5 g/dl (32.0-36.5); MEAN CORPUSCULAR VOLUME 92.2 fl (80.0-96.0); MONO # 0.4 10^3/uL (0.0-0.8); MONO % 8.7 % (0.0-5.0); NEUTROPHILS # 1.4 10^3/uL (1.5-8.5); NEUTROPHILS % 32.6 % (36.0-66.0); PLATELET COUNT, AUTOMATED 209 10^3/uL (150-450); WHITE BLOOD COUNT 4.4 10^3/uL (4.0-10.0)
--- NOTE | 2019-11-08 12:05 | REP ---
PELVIS ULTRASOUND: Real-time sonographic evaluation of the pelvis is performed utilizing transabdominal and endovaginal technique. The uterus measures 8.4 x 4.5 x 5.9 cm. Intrauterine gestational sac is present containing a fetus with a crown-rump length of 11 mm, corresponding to an estimated gestational age of 7 weeks 1 day. No heart motion is detected consistent with intrauterine demise. Right ovary measures 2.5 x 0.9 x 1.6 cm and left ovary 2.8 x 1.9 x 2.8 cm. Cystic structure of the left ovary probably represents a corpus luteum 2.1 cm in diameter. There is no torsion of either ovary. No free fluid is seen. IMPRESSION: Intrauterine gestational sac contains a fetus with a crown-rump length of 11 mm, corresponding to an estimated gestational age of 7 weeks 1 day. No heart motion is detected. Findings are consistent with intrauterine demise. Electronically Signed by Kishor Viera MD 11/13/2019 09:41 A
[2019-11-08 12:40] LABS: CHLAMYDIA DNA AMPLIFICATION NEGATIVE (NEGATIVE); GC DNA AMPLIFICATION NEGATIVE (NEGATIVE)
[2019-11-08] MEDS ORDERED: SODIUM CHLORIDE 0.9% 1000ML IV ONE (14:45)
[2019-11-08 15:20] VITALS: BP 118/73
[2019-11-08] MEDS ORDERED: NS 1,000 ML IV SCH (15:30)
[2019-11-08] MEDS ORDERED: ONDANSETRON 4MG/2ML VIAL (J2405) As Ordered ONE (17:12)
[2019-11-08] MEDS ORDERED: METOCLOPRAMIDE INJ 10MG/2ML VIAL (J2765) As Ordered ONE (17:12)
[2019-11-08] MEDS ORDERED: LIDOCAINE 2% INJ 100 MG/5 ML SDV (FOR ANES.) As Ordered ONE (17:12)
[2019-11-08] MEDS ORDERED: fentaNYL 100 MCG/2 ML INJECTION (J3010) As Ordered ONE (17:12)
[2019-11-08] MEDS ORDERED: propofoL 200 MG/20 ML VIAL As Ordered ONE (17:12)
[2019-11-08] MEDS ORDERED: MIDAZOLAM INJ 2 MG/2 ML VIAL (J2250) As Ordered ONE (17:12)
[2019-11-08] MEDS ORDERED: dexameTHASONE 4 MG/ML 1ML VIAL (J1100) As Ordered ONE (17:12)
[2019-11-08] MEDS ORDERED: ACETAMINOPHEN 650 MG SUPP As Ordered ONE (18:19)
--- NOTE | 2019-11-08 18:22 | HPE ---
DATE OF ADMISSION: 11/08/2019 This lady is a 19-year-old 2, para 0 whose estimated gestational age is 7.1 to 8 weeks. She was seen at [facility] 24 hours ago because of cramping. They did an ultrasound, showed a nonviable of 7 weeks 1 day. Her quant were about 7000. She then came to emergency this morning wanting reassessment regarding cardiac activity. Ultrasound here indicated nonviable fetus, crown-rump length 11 mm, corresponding to 7 weeks 1 day, no motion was noted, consistent with intrauterine demise. Her quant here was 7035. Past history is she has issues with behavior health, has been on multiple medicines but stopped them all when she got , which has increased her anxiety, her depression. She also has a history of bulimia. Her surgical history is wisdom teeth and a dilation and curettage for therapeutic . She has no known allergies. She is presently retired out of the [employer]. Temperature is 97.7, blood pressure 105/70, respirations 17, pulse 74. She was offered several options regarding the missed AB; one is awaiting of spontaneous vaginal delivery, second was the use of Cytotec followed by ultrasound and quantitative hCG until negative, or options of dilation and curettage, and patient elected to go ahead with dilation and curettage. Risks and benefits of dilation and curettage were discussed - hemorrhage, infection, perforation, , reoperation, risk of injury to other organs. She signed the consent form, witnessed and she also signed the consent form for blood transfusion, which was witnessed. We spent 40 minutes in discussion after which the most burning question was could we do another ultrasound to see if it is for sure nonviable. Explained to her she had one 24 hours ago at another institution and was nonviable, she had one here 2 hours ago in which it was nonviable. It is unlikely that there was a mistake made on either one of those. However, her option is that she could have a reevaluation in 3 or 4 days if she wishes, but we would not be redoing the ultrasound that was just done in an interval time. The patient expressed understanding, requested to have a dilation and curettage, signed the consent form. The rest of the examination unremarkable. She is 5 feet 10 inches, 82.1 kg. Blood pressure 105/70, respirations 17, pulse 74, temperature is 97.7. The rest of the examination is unremarkable. Normocephalic, atraumatic. Neck: Full range of motions. Pupils equal and reactive to light. Distal pulses symmetric. No evidence of deep vein thrombosis (DVT), pulmonary embolism (PE) or superficial phlebitis. Chest is clear bilateral bases. No wheezes or rhonchi. No costovertebral (CVA) tenderness. Abdomen: Soft, four quadrant bowel sounds are noted. She has no intermittent vaginal bleeding. A pelvic examination was not done as we just had a recent ultrasound. She has no nausea, vomiting, diarrhea or constipation. No urgency, frequency. She has just recently retired from the [employer]. She is to a soldier. No domestic violence. Good support. In summary, we have a 7 week 1 day demise. All options were discussed. The patient elected to have a suction dilation and curettage. Arrangements are being made with the operating room (OR). Their plan is to delay until 7:00 p.m. tonight as she had a male at noon. In summary, demise at 7 weeks. Plans are dilation and curettage, suction.
[2019-11-08] MEDS ORDERED: ONDANSETRON 4MG/2ML VIAL (J2405) IV PRN (19:30)
[2019-11-08] MEDS ORDERED: fentaNYL 100 MCG/2 ML INJECTION (J3010) IV PRN (19:30)
[2019-11-08] MEDS ORDERED: LR 1,000 ML IV SCH (19:30)
[2019-11-08] MEDS ORDERED: MEPERIDINE INJ 25 MG/ML VIAL (J2175) IV PRN (19:30)
[2019-11-08] MEDS ORDERED: PERCOCET 5MG/325MG TAB PO PRN (19:30)
[2019-11-08] MEDS ORDERED: METOCLOPRAMIDE INJ 10MG/2ML VIAL (J2765) IV PRN (19:30)
[2019-11-08 19:45] VITALS: BP 115/78
[2019-11-08 20:15] VITALS: BP 111/77
[2019-11-08] MEDS ORDERED: KETOROLAC 30 MG/ML VIAL (J1885) IV PRN (20:30)
[2019-11-08 20:45] VITALS: BP 116/79
[2019-11-08 21:00] VITALS: BP 117/80
[2019-11-08 22:00] VITALS: BP 111/69
--- NOTE | 2019-11-08 22:08 | RO ---
DATE OF PROCEDURE: 11/08/2019 PREOPERATIVE DIAGNOSIS: demise at 7 weeks. POSTOPERATIVE DIAGNOSIS: demise at 7 weeks. OPERATION PROPOSED: Suction and curettage. OPERATION PERFORMED: Suction and curettage. SURGEON: Vance Ding MD ELECT[employer]IC [employer]OR MECHANIC: ANESTHESIA: General. ESTIMATED BLOOD LOSS: Less than 20 mL DESCRIPTION OF PROCEDURE: After adequate time-out, prepped and draped in lithotomy position, the bladder was drained for 30 mL of clear urine. Weighted speculum in vagina. Single-tooth tenaculum on the anterior lip of the cervix. There was some blood coming from the cervical os. It was sounded to a depth of 9 cm, already dilated to Kirstin 9. Curved suction curette applied. Curettage until the cavity was smooth. Uterus replaced in anatomical position, well contracted. The patient is Rh positive and does not require RhoGAM. Was sent to recovery in good condition.
== END 2019-11-08 22:45 | disposition home or self-care (01) ==
LOC: M ED 10:00 → M SDC 14:00 → ENRESERV 14:32 → M MSPAV 15:20 → M SDC 22:45
PROVIDERS: ATTEND Obstetrics & Gynecology
DX: O02.1 Missed abortion (principal); K21.9 Gastro-esophageal reflux disease without esophagitis
CPT/HCPCS: 59820; 76801; 76817; 84702; 85025; 86901; 87210; 87491; 87591; 88305; 93976; 99284; J1100; J2250; J2405; J2765; J3010

== ENCOUNTER 2020-01-04 18:31 | Emergency (ER) | payer OTHER ==
[~2020-01-04] VITALS: Ht 177.8 cm; Wt 83.3 kg
[2020-01-04 20:46] LABS: INFLUENZA A AMPLIFICATION NEGATIVE (NEGATIVE); INFLUENZA B AMPLIFICATION NEGATIVE (NEGATIVE)
[2020-01-04] MEDS ORDERED: ACETAMINOPHEN 325 MG TAB PO ONE (23:00)
[2020-01-04] MEDS ORDERED: LIDOCAINE VISCOUS 2% SOLN 15ML UDC SS ONE (23:00)
[2020-01-04] MEDS ORDERED: ALBUTEROL 90 MCG/ACT 8GM HFA INHALER INH ONE (23:30)
[2020-01-04] MEDS ORDERED: NS 1,000 ML IV ONE (23:30)
[2020-01-05 00:05] LABS: BASO % 0.4 % (0.0-1.0); EOS # 0.4 10^3/uL (0.0-0.5); EOS % 9.2 % (0.0-3.0); HEMATOCRIT 42.8 % (36.0-47.0); HEMOGLOBIN 14.4 g/dl (12.0-15.5); LYMPH # 2.3 10^3/uL (1.5-5.0); LYMPH % 48.1 % (24.0-44.0); MEAN CORPUSCULAR HEMOGLOBIN 30.5 pg (27.0-33.0); MEAN CORPUSCULAR HGB CONC 33.6 g/dl (32.0-36.5); MEAN CORPUSCULAR VOLUME 90.7 fl (80.0-96.0); MONO # 0.3 10^3/uL (0.0-0.8); MONO % 5.7 % (0.0-5.0); NEUTROPHILS # 1.7 10^3/uL (1.5-8.5); NEUTROPHILS % 36.4 % (36.0-66.0); PLATELET COUNT, AUTOMATED 192 10^3/uL (150-450); RED BLOOD COUNT 4.72 10^6/uL (4.00-5.40); WHITE BLOOD COUNT 4.8 10^3/uL (4.0-10.0)
[2020-01-05 00:32] LABS: ALBUMIN 4.3 GM/DL (3.2-5.2); ALT/SGPT 14 U/L (12-78); BILIRUBIN,TOTAL 0.4 MG/DL (0.2-1.0); BLOOD UREA NITROGEN 12 MG/DL (7-18); CALCIUM LEVEL 9.1 MG/DL (8.5-10.1); CARBON DIOXIDE LEVEL 24 MEQ/L (21-32); CHLORIDE LEVEL 108 MEQ/L (98-107); CREATININE FOR GFR 0.79 MG/DL (0.55-1.30); GLOMERULAR FILTRATION RATE > 60.0 (>60); GLUCOSE, FASTING 93 MG/DL (70-100); POTASSIUM SERUM 3.5 MEQ/L (3.5-5.1); SODIUM LEVEL 141 MEQ/L (136-145); TOTAL PROTEIN 8.3 GM/DL (6.4-8.2)
[2020-01-05] MEDS ORDERED: VENTAER INH (00:55)
[2020-01-05] MEDS ORDERED: LIDO2SOL17 PO (00:55)
[2020-01-05 01:21] VITALS: BP 131/84
--- NOTE | 2020-01-05 14:23 | REP ---
REASON: Dyspnea. TWO-VIEW CHEST: COMPARISON: No priors. FINDINGS: The superior mediastinal structures are midline. The cardiac silhouette is unremarkable in size, shape, and position. The diaphragmatic surfaces of the lungs are regular, and the costophrenic angles are clear. The pulmonary aguilar are clear. The imaged osseous structures are intact. IMPRESSION: There is no acute cardiopulmonary disease. Electronically Signed by Abilio Lorenzana DO 01/05/2020 03:01 P
== END 2020-01-05 01:21 | disposition home or self-care (01) ==
LOC: M ED 18:31
DX: J06.9 Acute upper respiratory infection, unspecified (principal); F33.9 Major depressive disorder, recurrent, unspecified; F41.9 Anxiety disorder, unspecified; F50.2 Bulimia nervosa
CPT/HCPCS: 36415; 71046; 80053; 85025; 87486; 87502; 87581; 87633; 87798; 87880; 96360; 99284; U0002

== ENCOUNTER → 2020-02-12 | Outpatient (CLI) | payer OTHER ==
[~2020-02-12] MED LIST changes: +LIDO2SOL17 PO; +VENTAER INH
--- NOTE | 2020-02-12 12:24 | REP ---
BILATERAL BREAST ULTRASOUND: Bilateral breast ultrasound performed. The patient is breast feeding. On the right, there are reportedly new red moles in the 6-o'clock region of the breast on the skin. There is no underlying sonographic abnormality. On the left, there is a history of clear nipple discharge and history of indentation in the 6 -o'clock region of the left breast. Real-time sonographic evaluation of the left retroareolar region demonstrate no cystic or solid nodule. Real-time sonographic evaluation at the 6-o'clock region of the left breast in the region of the reported indentation demonstrates no cystic or solid nodule. IMPRESSION: No sonographic abnormalities are seen in the region of reported clinical abnormalities, 6-o'clock right breast, 6-o'clock left breast and left retroareolar region after one instance of clear nipple discharge. Clinical correlation and followup is recommended. ACR category 2 benign findings.
== END ==
LOC: M WHC 07:27
PROVIDERS: ATTEND Physician Assistant
DX: N64.9 Disorder of breast, unspecified (principal)

== ENCOUNTER 2020-02-15 04:38 | Emergency (ER) | payer OTHER ==
[~2020-02-15] VITALS: Ht 177.8 cm; Wt 72.7 kg
[2020-02-15] MEDS ORDERED: IBUPROFEN 600 MG TAB PO ONE (05:30)
[2020-02-15] MEDS ORDERED: IBUP-1022 PO (05:34)
[2020-02-15 05:55] VITALS: BP 117/64
== END 2020-02-15 05:57 | disposition home or self-care (01) ==
LOC: M ED 04:38
DX: S13.4XXA Sprain of ligaments of cervical spine, initial encounter (principal); W01.0XXA Fall on same level from slipping, tripping and stumbling without subsequent striking against object, initial encounter; Y92.89 Other specified places as the place of occurrence of the external cause; Y93.9 Activity, unspecified; Y99.9 Unspecified external cause status; F41.9 Anxiety disorder, unspecified; F32.9 Major depressive disorder, single episode, unspecified; Z91.81 History of falling

== ENCOUNTER 2020-03-22 13:53 | Emergency (ER) | payer OTHER ==
[~2020-03-22] VITALS: Ht 177.8 cm; Wt 77.9 kg
[~2020-03-22 13:53] MED LIST changes: +IBUP-1022 PO
[2020-03-22 15:01] LABS: BASO % 0.2 % (0.0-1.0); EOS # 0.3 10^3/uL (0.0-0.5); EOS % 6.3 % (0.0-3.0); HEMATOCRIT 40.8 % (36.0-47.0); HEMOGLOBIN 13.3 g/dl (12.0-15.5); LYMPH # 2.2 10^3/uL (1.5-5.0); LYMPH % 46.9 % (24.0-44.0); MEAN CORPUSCULAR HEMOGLOBIN 30.1 pg (27.0-33.0); MEAN CORPUSCULAR HGB CONC 32.6 g/dl (32.0-36.5); MEAN CORPUSCULAR VOLUME 92.3 fl (80.0-96.0); MONO # 0.3 10^3/uL (0.0-0.8); NEUTROPHILS # 1.9 10^3/uL (1.5-8.5); NEUTROPHILS % 39.4 % (36.0-66.0); PLATELET COUNT, AUTOMATED 205 10^3/uL (150-450); RED BLOOD COUNT 4.42 10^6/uL (4.00-5.40); WHITE BLOOD COUNT 4.7 10^3/uL (4.0-10.0)
[2020-03-22 15:38] LABS: ALT/SGPT 16 U/L (12-78); BILIRUBIN,DIRECT 0.1 MG/DL (0.0-0.2); BILIRUBIN,TOTAL 0.4 MG/DL (0.2-1.0); BLOOD UREA NITROGEN 15 MG/DL (7-18); CALCIUM LEVEL 8.8 MG/DL (8.5-10.1); CARBON DIOXIDE LEVEL 27 MEQ/L (21-32); CHLORIDE LEVEL 107 MEQ/L (98-107); CREATININE FOR GFR 0.75 MG/DL (0.55-1.30); GLOMERULAR FILTRATION RATE > 60.0 (>60); GLUCOSE, FASTING 96 MG/DL (70-100); LIPASE 73 U/L (73-393); POTASSIUM SERUM 3.4 MEQ/L (3.5-5.1); SODIUM LEVEL 140 MEQ/L (136-145); TOTAL PROTEIN 7.8 GM/DL (6.4-8.2)
[2020-03-22 17:03] LABS: CHLAMYDIA DNA AMPLIFICATION NEGATIVE (NEGATIVE); GC DNA AMPLIFICATION NEGATIVE (NEGATIVE)
[2020-03-22 17:11] VITALS: BP 109/72
--- NOTE | 2020-03-22 22:47 | REP ---
KUB ABDOMEN AND PELVIS: KUB film of abdomen and pelvis is performed. Moderate fecal material is seen in the rectum. No dilated bowel loops are seen. No abnormal calcifications are seen. There is mild curvature of the thoracolumbar spine convex to the left. IMPRESSION: Moderate fecal material in the rectum. No bowel obstruction. Electronically Signed by Kishor Viera MD 03/23/2020 01:12 P
--- NOTE | 2020-03-22 23:02 | REP ---
PELVIC ULTRASOUND: Real-time sonographic evaluation of pelvis performed utilizing transabdominal and endovaginal technique. Bladder measures 7.3 x 2.0 x 4.9 cm. Uterus measures 8.3 x 3.4 x 3.9 cm. Endometrial thickness is 4 mm with no endometrial fluid collection. There is a subcentimeter nabothian cyst in the region of the cervix. Ovaries are normal in size and echotexture, right ovary measuring 2.6 x 0.9 x 2.0 cm and left ovary 2.9 x 1.1 x 2.5 cm. There is no adnexal mass or free fluid. There is no evidence of ovarian torsion with duplex Doppler evaluation. IMPRESSION: Negative pelvic ultrasound. Electronically Signed by Kishor Viera MD 03/23/2020 01:13 P
== END 2020-03-22 17:18 | disposition home or self-care (01) ==
LOC: M ED 13:53
DX: K59.00 Constipation, unspecified (principal); N93.9 Abnormal uterine and vaginal bleeding, unspecified; F41.9 Anxiety disorder, unspecified; F32.9 Major depressive disorder, single episode, unspecified; F50.2 Bulimia nervosa; Z79.899 Other long term (current) drug therapy

== ENCOUNTER 2020-05-11 17:21 | Emergency (ER) | payer OTHER ==
[~2020-05-11] VITALS: Ht 177.8 cm; Wt 73.0 kg
[2020-05-11] MEDS ORDERED: diphenhydrAMINE 25MG CAP PO ONE (19:45)
[2020-05-11] MEDS ORDERED: CETI10CA2 PO (21:25)
[2020-05-11] MEDS ORDERED: PRED10TA2 PO (21:25)
[2020-05-11 21:45] VITALS: BP 115/73
== END 2020-05-11 22:00 | disposition home or self-care (01) ==
LOC: M ED 17:21
DX: B34.9 Viral infection, unspecified (principal); J30.89 Other allergic rhinitis; F33.9 Major depressive disorder, recurrent, unspecified; F41.9 Anxiety disorder, unspecified; K21.9 Gastro-esophageal reflux disease without esophagitis; F50.2 Bulimia nervosa; Z79.899 Other long term (current) drug therapy; F17.210 Nicotine dependence, cigarettes, uncomplicated

== ENCOUNTER 2020-06-14 16:21 | Emergency (ER) | payer OTHER ==
[~2020-06-14] VITALS: Ht 177.8 cm; Wt 68.0 kg
[~2020-06-14 16:21] MED LIST changes: +CETI10CA2 PO; +PRED10TA2 PO
[2020-06-14] MEDS ORDERED: NS 1,000 ML IV ONE (17:00)
[2020-06-14 17:24] LABS: BASO % 0.3 % (0.0-1.0); EOS # 0.3 10^3/uL (0.0-0.5); EOS % 4.2 % (0.0-3.0); HEMATOCRIT 36.6 % (36.0-47.0); HEMOGLOBIN 13.2 g/dl (12.0-15.5); LYMPH # 2.3 10^3/uL (1.5-5.0); LYMPH % 38.4 % (24.0-44.0); MEAN CORPUSCULAR HGB CONC 36.1 g/dl (32.0-36.5); MEAN CORPUSCULAR VOLUME 88.8 fl (80.0-96.0); MONO # 0.5 10^3/uL (0.0-0.8); MONO % 7.9 % (0.0-5.0); NEUTROPHILS # 2.9 10^3/uL (1.5-8.5); NEUTROPHILS % 48.9 % (36.0-66.0); PLATELET COUNT, AUTOMATED 212 10^3/uL (150-450); RED BLOOD COUNT 4.12 10^6/uL (4.00-5.40); WHITE BLOOD COUNT 5.9 10^3/uL (4.0-10.0)
[2020-06-14 17:37] LABS: BLOOD UREA NITROGEN 10 MG/DL (7-18); CALCIUM LEVEL 8.7 MG/DL (8.5-10.1); CARBON DIOXIDE LEVEL 25 MEQ/L (21-32); CHLORIDE LEVEL 108 MEQ/L (98-107); CREATININE FOR GFR 0.64 MG/DL (0.55-1.30); GLOMERULAR FILTRATION RATE > 60.0 (>60); GLUCOSE, FASTING 91 MG/DL (70-100); HCG, SERUM QUANTITATIVE 41266 MIU/ML; POTASSIUM SERUM 3.5 MEQ/L (3.5-5.1); SODIUM LEVEL 140 MEQ/L (136-145); THYROID STIMULATING HORMONE 0.197 uIU/ML (0.358-3.740)
[2020-06-14 18:26] VITALS: BP 101/74
[2020-06-14 18:37] LABS: FREE T4 1.26 NG/DL (0.76-1.46)
--- NOTE | 2020-07-01 15:14 | ECGEPIP ---
[facility] [place] - ED Test Date: 2020-06-14 Pat Name: REILLY HUBER Department: Room: - Gender: Female Body Line Finisher: : 2000 Requested By: ERENDIRA LOPEZ PA-C. Order Number: [id number] Reading MD: Maged Raymond Measurements Intervals [place] Rate: 84 P: 51 CO: 152 QRS: 59 QRSD: 81 T: 41 QT: 343 QTc: 407 Interpretive Statements SINUS RHYTHM MODERATE T-WAVE ABNORMALITY, CONSIDER ANTERIOR ISCHEMIA SEE SCANNED DOWNTIME REPORT
== END 2020-06-14 18:34 | disposition home or self-care (01) ==
LOC: M ED 16:21
DX: O99.89 Other specified diseases and conditions complicating pregnancy, childbirth and the puerperium (principal); R55 Syncope and collapse; O99.611 Diseases of the digestive system complicating pregnancy, first trimester; K29.70 Gastritis, unspecified, without bleeding; K21.9 Gastro-esophageal reflux disease without esophagitis; Z3A.10 10 weeks gestation of pregnancy; Z79.899 Other long term (current) drug therapy

== ENCOUNTER → 2020-06-19 | Outpatient (CLI) | payer OTHER ==
[~2020-06-19] MED LIST changes: +B-650TAB2 PO; +BISA10SU PR; +OMEP-218 PO; +PEG1POW PO; +PREN1TAB14 PO; +PRENCHW PO; +SERT25TA21 PO; +SUCR1ORA PO
--- NOTE | 2020-07-07 16:14 | REP ---
FIRST TRIMESTER OBSTETRICAL ULTRASOUND: HISTORY: Dating and viability. TECHNIQUE: Transabdominal first trimester obstetrical ultrasound with color Doppler evaluation. FINDINGS: Ultrasound examination demonstrates single live early intrauterine . pole measurements of 68 mm corresponds to 13 weeks 1 day gestational age with estimated date of delivery of 12/24/2020. heart rate equals 167 beats per minute. No gross abnormalities are identified. The cervix measures 4.5 cm in length and appears closed. Placenta noted posteriorly. IMPRESSION: Single live early intrauterine at 13 weeks 1 day gestational age. Complete anatomical assessment should be performed at 19-20 weeks. MTDD
--- NOTE | 2020-07-07 16:16 | REP ---
FOCUSED LEFT BREAST SONOGRAPHY HISTORY: Left breast lump. Positive family history of breast carcinoma. SONOGRAPHIC FINDINGS: Scanning is performed in the area of the palpable lump, which the patient directs us is at approximately 6 o'clock. This demonstrates heterogeneous fibroglandular background echotexture. No cyst is seen. No mass or acoustic shadowing is observed. IMPRESSION: BI-RADS Category 1 negative findings. Clinical follow-up is advised. The patients Tyrer-Cuzick lifetime breast cancer risk estimate is 12.3%. MTDD
== END ==
LOC: M WHC 09:45
PROVIDERS: ATTEND Advanced Practice Midwife
DX: Z34.01 Encounter for supervision of normal first pregnancy, first trimester (principal); Z3A.13 13 weeks gestation of pregnancy; Z80.3 Family history of malignant neoplasm of breast; N63.25 Unspecified lump in the left breast, overlapping quadrants

== ENCOUNTER → 2020-06-25 | Outpatient (CLI) | payer OTHER ==
[2020-06-25 12:27] LABS: BASO % 0.2 % (0.0-1.0); EOS # 0.1 10^3/uL (0.0-0.5); EOS % 2.7 % (0.0-3.0); HEMATOCRIT 33.2 % (36.0-47.0); HEMOGLOBIN 11.2 g/dl (12.0-15.5); LYMPH # 1.6 10^3/uL (1.5-5.0); LYMPH % 36.1 % (24.0-44.0); MEAN CORPUSCULAR HEMOGLOBIN 30.9 pg (27.0-33.0); MEAN CORPUSCULAR HGB CONC 33.7 g/dl (32.0-36.5); MEAN CORPUSCULAR VOLUME 91.5 fl (80.0-96.0); MONO # 0.3 10^3/uL (0.0-0.8); MONO % 7.1 % (0.0-5.0); NEUTROPHILS # 2.4 10^3/uL (1.5-8.5); NEUTROPHILS % 53.7 % (36.0-66.0); PLATELET COUNT, AUTOMATED 161 10^3/uL (150-450); RED BLOOD COUNT 3.63 10^6/uL (4.00-5.40); WHITE BLOOD COUNT 4.4 10^3/uL (4.0-10.0)
[2020-06-25 12:43] LABS: FREE T4 1.12 NG/DL (0.76-1.46); THYROID STIMULATING HORMONE 0.278 uIU/ML (0.358-3.740)
[2020-06-25 14:20] LABS: HEPATITIS C VIRUS ABY INDEX 0.3 INDEX (<0.8)
[2020-06-25 14:21] LABS: HIV 1&2 SCREEN CENTAUR NEGATIVE (NEGATIVE)
== END ==
LOC: M PLALAB 07:45
PROVIDERS: ATTEND Advanced Practice Midwife
DX: O99.011 Anemia complicating pregnancy, first trimester (principal); D57.3 Sickle-cell trait; Z3A.00 Weeks of gestation of pregnancy not specified; O99.281 Endocrine, nutritional and metabolic diseases complicating pregnancy, first trimester; E07.9 Disorder of thyroid, unspecified

== ENCOUNTER → 2020-06-25 | Outpatient (REF) | payer OTHER | LOC: M WUC 09:47 | PROVIDERS: ATTEND Physician Assistant | DX: R10.9 Unspecified abdominal pain (principal) ==

== ENCOUNTER 2020-07-03 16:38 | Inpatient (IN) | payer OTHER ==
[~2020-07-03 16:38] MED LIST changes: -B-650TAB2 PO; -BISA10SU PR; -OMEP-218 PO; -PEG1POW PO; -PREN1TAB14 PO; -PRENCHW PO; -SERT25TA21 PO; -SUCR1ORA PO
[2020-07-03] MEDS ORDERED: ONDANSETRON 4 MG TAB PO PRN (19:15)
--- NOTE | 2020-07-03 19:53 | HPEPDOC ---
General Date of Admission Date of Service: Jul 03, 2020 History of Present Illness Ms. Licona is a 19yo at 12+0 by LMP but 13-14wk by informal scan in clinic today initially called the clinic because she has multiple GI symptoms. She reports loss of appetite, infrequent stools with her last stool 2 weeks ago, long thin black tarry stools, and involuntary weight loss. She endorses nausea. Her symptoms started just before her and she saw GI at the [facility] once who recommended endoscopy/colonoscopy. She had negative testing fro c. diff, ova/parasites, and PCR for multiple other sources. She had negative guiac testing per patient at her multiple ED visits for her issue (no record in [facility] or [facility]). She reports she has never had any sort of abdominal imaging. She otherwise denied vomiting, CP, SOB, AMBROCIO, visual changes, abd pain, F/C, vaginal bleeding, discharge, urinary symptoms, concern for rupture of membranes, contractions. Home Medications Scheduled PRN Albuterol Sulfate (Ventolin Hfa) 18 Gm Hfa.aer.ad, 2 PUFFS INH Q4H PRN for SOB/WHEEZING, (Reported) Allergies Coded Allergies: No Known Allergies (Unverified , 06/14/20) Past Medical History Medical History OBHX: D+C/SAB, EAB/medical, SAB/expectant x2 GYNHX: denied STI, HSV, HPV MHX: anxiety, depression, insomnia SHX: D+C, WTE ALL: denied MEDS: PNV SOC: denied a/t/d FHX: paternal great aunt with sickle cell and breast cancer, PGM with breast cancer Social History * Smoker: Denies A-FIB/CHADSVASC A-FIB History Current/History of A-Fib/PAF?: No Physical Examination General Exam: Positive: Alert ENT Exam: Positive: Atraumatic Neck Exam: Positive: Supple Chest Exam: Positive: Clear to auscultation Heart Exam: Positive: Rate Normal Abdomen Exam: Positive: Soft Neuro Exam: Positive: Normal Gait Psych Exam: Positive: Mental status NL Vital Signs 98.1F, 86bpm, 17 RR, 108/75, O2 100% on RA Assessment/Plan RADS [id number] - KUB impression: moderate stool in rectum, no bowel obstruction LABS [id number] C. diff - negative [id number] - all negative camplobacter, shigella, salminella, cholerae, Y enterocolitica, pathogenic E. coli, cryptosporidium, E. histolytica, cyclospora, giardia, adenovirus, norovidus, rotavirus, sapovirus - all negative [id number] H. pylori Ag negative [id number] ova and parasites negative [id number] TSH 0.58 OB LABS Genetics: CF negative, Hbg electro normal Hep B: non-reactive HIV: negative RPR: negative ABO: A pos ABS neg Immune: rubella and varicella immune CBC: 03/03/38/176 UCx: contaminated G/C: negative ([facility]) Pap: MAR 2020 NILM HPV pos (16/18 neg) OB PROBLEMS LIST 1. undergoing GI work up per assessment/plan 2. initially A+ ABS pos, repeat testing no ABS pos 3. MAR 2020 NILM HPV pos (16/18 neg) ASSESSMENT Ms. Licona is a 19yo at 12+0 by LMP but 13-14wk by informal scan in clinic today with loss of appetite, infrequent stools with her last stool 2 weeks ago, long thin black tarry stools, and involuntary weight loss of approx 40#. She had negative testing fro c. diff, ova/parasites, and PCR for multiple other sources. She had negative guiac testing per patient at her multiple ED visits for her issue ([facility] or [facility]). KUB in February with stool burden but no obstruction. PLAN - admit to Med Surg - consult placed to GI - VS, I+O q4h - daily weights and doptones - CBC, CMP, urine ketones on admission - drug screen on admission per GI - US abdomen on admission per GI - growth scan to confirm dating on admission - regular diet - ambulate as tolerated - SCDs for DVT prophylaxis Melania THE PATIENT WAS SUPPOSED TO BE ADMITTED AT 1700 LAST NIGHT AND AFTER GOING TO REGISTRATION THE PATIENT DECIDED TO LEAVE THE HOSPITAL AND DID NOT ANSWER HER PHONE. HER SPONSOR WAS CALLED AND SAID HE THINKS SHE DIDNT WANT TO SLEEP IN THE HOSPITAL OVERNIGHT. THE PATIENT THEN SHOWED UP THIS MORNING IN THE ER EXPECTING TO BE ADMITTED. SHE WAS THEN ADVISED AGAIN TO GO TO THE FLOOR FOR ADMISSION Plan / VTE VTE Prophylaxis Ordered?: Yes (SCDs) ELHAM BRITT DO Jul 03, 2020 19:53
[2020-07-04] MEDS ORDERED: PREN1TAB14 PO (08:55)
[2020-07-04] MEDS ORDERED: SERT25TA21 PO (08:55)
[2020-07-04] MEDS ORDERED: VENTAER INH (09:20)
[2020-07-04 09:45] VITALS: BP 112/70
[2020-07-04 10:46] LABS: BASO % 0.2 % (0.0-1.0); EOS # 0.2 10^3/uL (0.0-0.5); EOS % 3.6 % (0.0-3.0); HEMATOCRIT 32.2 % (36.0-47.0); HEMOGLOBIN 10.7 g/dl (12.0-15.5); LYMPH # 1.5 10^3/uL (1.5-5.0); LYMPH % 31.8 % (24.0-44.0); MEAN CORPUSCULAR HEMOGLOBIN 30.6 pg (27.0-33.0); MEAN CORPUSCULAR HGB CONC 33.2 g/dl (32.0-36.5); MONO # 0.4 10^3/uL (0.0-0.8); MONO % 8.2 % (0.0-5.0); NEUTROPHILS # 2.7 10^3/uL (1.5-8.5); PLATELET COUNT, AUTOMATED 167 10^3/uL (150-450); WHITE BLOOD COUNT 4.8 10^3/uL (4.0-10.0)
[2020-07-04] MEDS ORDERED: ONDANSETRON 4MG/2ML VIAL IV SCH (11:00)
[2020-07-04 11:01] LABS: APPEARANCE, URINE HAZY (CLEAR); BACTERIA, URINE AUTO NEGATIVE (NEGATIVE); BILIRUBIN, URINE AUTO NEGATIVE (NEGATIVE); BLOOD, URINE BLOOD NEGATIVE (NEGATIVE); COLOR, URINE YELLOW (YELLOW); GLUCOSE, URINE (UA) AUTO NEGATIVE (NEGATIVE); KETONE, URINE AUTO 2+ mg/dL (NEGATIVE); LEUKOCYTE ESTERASE, URINE AUTO NEGATIVE (NEGATIVE); MUCUS, URINE SMALL (NEGATIVE); NITRITE, URINE AUTO NEGATIVE (NEGATIVE); PROTEIN, URINE AUTO NEGATIVE (NEGATIVE); RBC, URINE AUTO 0 /HPF (0-3); SPECIFIC GRAVITY URINE AUTO 1.026 (1.002-1.035); SQUAMOUS EPITHELIAL CELL UR AU 3 /HPF (0-6); WBC, URINE AUTO 2 /HPF (0-3)
[2020-07-04 11:02] LABS: AMPHETAMINES URINE REFLEX NEGATIVE (NEGATIVE); BARBITURATES URINE REFLEX NEGATIVE (NEGATIVE); BENZODIAZEPINES URINE REFLEX NEGATIVE (NEGATIVE); CANNABINOIDS URINE REFLEX NEGATIVE (NEGATIVE); COCAINE METABOLITE URINE REFLE NEGATIVE (NEGATIVE); METHADONE URINE REFLEX NEGATIVE (NEGATIVE); OPIATES URINE REFLEX NEGATIVE (NEGATIVE); PHENCYCLIDINE URINE REFLEX NEGATIVE (NEGATIVE)
[2020-07-04] MEDS: D5W/0.9% SODIUM CHLORIDE 1,000 ML IV SCH ×2 (11:57→23:17)
[2020-07-04] MEDS ORDERED: BISACODYL 10 MG SUPP PR PRN (13:15)
[2020-07-04 13:20] LABS: INR 1.08; PARTIAL THROMBOPLASTIN TIME 27.3 SECONDS (25.0-38.4); PROTHROMBIN TIME 14.2 SECONDS (11.8-14.0)
[2020-07-04 13:33] LABS: ALBUMIN 2.8 GM/DL (3.2-5.2); ALT/SGPT 9 U/L (12-78); BILIRUBIN,TOTAL 0.3 MG/DL (0.2-1.0); BLOOD UREA NITROGEN 8 MG/DL (7-18); CALCIUM LEVEL 8.4 MG/DL (8.5-10.1); CARBON DIOXIDE LEVEL 23 MEQ/L (21-32); CHLORIDE LEVEL 111 MEQ/L (98-107); CREATININE FOR GFR 0.45 MG/DL (0.55-1.30); GLOMERULAR FILTRATION RATE > 60.0 (>60); GLUCOSE, FASTING 78 MG/DL (70-100); POTASSIUM SERUM 3.6 MEQ/L (3.5-5.1); SODIUM LEVEL 139 MEQ/L (136-145); TOTAL PROTEIN 6.1 GM/DL (6.4-8.2)
[2020-07-04] MEDS: PRENATAL VITAMINS CHEWABLE TABLET PO SCH (14:00)
[2020-07-04] MEDS ORDERED: BISACODYL 10 MG SUPP PR ONE (14:00)
[2020-07-04] MEDS ORDERED: ONDANSETRON 4MG/2ML VIAL IV PRN (16:00)
[2020-07-04] MEDS: MIRALAX *UNIT DOSE* 17GM PACKET PO SCH (16:34)
[2020-07-04 17:07] VITALS: BP 100/56
[2020-07-04] MEDS: PYRIDOXINE 50 MG TAB PO SCH (17:25)
--- NOTE | 2020-07-04 17:25 | CR.PDOC ---
General Date of Consultation: Jul 04, 2020 Referring Provider: Vance Ding MD Consultation REASON FOR CONSULTATION/CHIEF COMPLAINT: GI symptoms and weight loss. HISTORY OF PRESENT ILLNESS: 19 year old 16 weeks patient admitted under the KNIFE SETTER GRINDER MACHINE/OBS service for ongoing GI symptoms and weight loss. Patient complained of having intermittent epigastric pain which comes in spasms for about 6 months. The spasmodic pain would often start in the epigastrium and then move down to the lower abdomen. When the spasms come they are about6/10 in intensity. She ofter feels pain in the lower abdomen when she passes urine. She feels full after eating small amounts of food. She has been changing her diet for past 6 mo nths to try to see what is bothering her stomach. She also complains of constipation with dark colored either hard string like stools or dark mushy stools for 6 months. The past 2 weeks she has been severely constipated with only 2 bowel movements. Till last year her bowel habits were regular though she she used to go every 2 to 3 days but did not think it abnormal. She reports loss of about 30 to 40 ilbs over the past 6 months. ALLERGIES: Please see below. HOME MEDICATIONS: Please see below. PAST MEDICAL HISTORY: Asthma Multiple miscarriages PAST SURGICAL HISTORY: D&C wisdom tooth removal FAMILY HISTORY: Father: Hypertension Paternal Grandmother and Paternal great Aunts with breast cancer Maternal Great aunt with breast cancer SOCIAL HISTORY: Tobacco use: Non smoker ETOH: denies Illicit drug use: denies REVIEW OF SYSTEMS: All 11 point review of systems are negative except those mentioned in HPI. PHYSICAL EXAMINATION: VITAL SIGNS: Please see below. GENERAL APPEARANCE: young well nourished female laying in bed in no distress. HEENT: NC/AT, MMM, anicteric eyes. RESPIRATORY: clear to auscultation, no ronchi or wheezing CARDIOVASCULAR: Normal s1, s2 no rub/murmur or gallop ABDOMEN: soft , nontender, armin sounds normal EXTREMITIES: No edema NEUROLOGICAL: No focal neurodeficits. PSYCHIATRIC: Alert, oriented x 3 LABORATORY DATA: Please see below. ASSESSMENT/PLAN: 19 year old femle admitted for multiple GI symptoms and weight loss. Constipation, weight loss, abdominal pain, nausea US abdomen negative will start on IVF, zofran, Full liquid diet dulcolax suppository. GI consultation in place !6 weeks pregant health monitoring as per OB Asthma albuterol prn. Vital Signs/I&O Vital Signs Date Time Temp Pulse Resp B/P (MAP) Pulse Ox O2 Delivery O2 Flow Rate FiO2 07/04/20 09:45 97.8 81 18 112/70 (84) 100 Room Air Laboratory Data Labs 24H Laboratory Tests 2 07/04/20 10:15: Urine Color YELLOW, Urine Appearance HAZY, Urine pH 7.0, Urine Specific [place] 1.026, Urine Protein NEGATIVE, Urine Glucose (Auto)(UA) NEGATIVE, Urine Ketones (Auto) 2+H, Urine Blood NEGATIVE, Urine Nitrite NEGATIVE, Urine Bilirubin NEGATIVE, Urine Urobilinogen 4.0H, Urine Leukocyte Esterase (Auto) NEGATIVE, Urine WBC (Auto) 2, Urine RBC (Auto) 0, Urine Hyaline Casts (Auto) 0, Urine Bacteria (Auto) NEGATIVE, Urine Squamous Epithelial Cells 3, Urine Mucus (Auto) SMALL, Urine Sperm (Auto) , Urine Opiates Screen NEGATIVE, Urine Methadone Screen NEGATIVE, Urine Barbiturates Screen NEGATIVE, Urine Phencyclidine Screen NEGATIVE, Urine Amphetamines Screen NEGATIVE, Urine Benzodiazepines Screen NEGATIVE, Urine Cocaine Metabolite Screen NEGATIVE, Urine Cannabinoids Screen NEGATIVE 07/04/20 10:27: Immature Granulocyte % (Auto) 0.2, Neutrophils (%) (Auto) 56.0, Lymphocytes (%) (Auto) 31.8, Monocytes (%) (Auto) 8.2H, Eosinophils (%) (Auto) 3.6H, Basophils (%) (Auto) 0.2, Neutrophils # (Auto) 2.7, Lymphocytes # (Auto) 1.5, Monocytes # (Auto) 0.4, Eosinophils # (Auto) 0.2, Basophils # (Auto) 0.0, Nucleated Red Blood Cells % (auto) 0.0 07/04/20 12:56: Prothrombin Time 14.2H, Prothromb Time International Ratio 1.08, Activated Partial Thromboplast Time 27.3, Anion Gap 5L, Glomerular Filtration Rate > 60.0, Calcium Level 8.4L, Total Bilirubin 0.3, Aspartate Amino Transf (AST/SGOT) 7, Alanine Aminotransferase (ALT/SGPT) 9L, Alkaline Phosphatase 48, Total Protein 6.1L, Albumin 2.8L, Albumin/Globulin Ratio 0.8L CBC/BMP Laboratory Tests 07/04/20 10:27 07/04/20 12:56 Microbiology Microbiology 07/04/20 Stool Occult Blood (JOANN) - Final, Complete Allergies Coded Allergies: No Known Allergies (Unverified , 06/14/20) Home Medications Scheduled PRN Albuterol Sulfate (Ventolin Hfa) 18 Gm Hfa.aer.ad, 2 PUFFS INH Q4H PRN for SOB/WHEEZING, (Reported) YESSENIA MENDOZA MD Jul 04, 2020 17:25
[2020-07-04] MEDS: SUCRALFATE SUSP 1GM/10ML UD PO SCH (17:26)
[2020-07-04] MEDS ORDERED: ALBUTEROL SULFATE 2.5 MG/0.5 ML INH NEB SOLN NEB PRN (17:30)
[2020-07-04 18:00] VITALS: BP 90/54
[2020-07-04 22:00] VITALS: BP 102/58
[2020-07-05 02:00] VITALS: BP 124/60
[2020-07-05] MEDS: OMEPRAZOLE 20 MG CAP PO SCH (05:04)
[2020-07-05 05:15] LABS: BASO % 0.4 % (0.0-1.0); EOS # 0.2 10^3/uL (0.0-0.5); EOS % 3.7 % (0.0-3.0); HEMATOCRIT 29.6 % (36.0-47.0); LYMPH # 1.9 10^3/uL (1.5-5.0); LYMPH % 41.4 % (24.0-44.0); MEAN CORPUSCULAR HEMOGLOBIN 30.8 pg (27.0-33.0); MEAN CORPUSCULAR HGB CONC 33.8 g/dl (32.0-36.5); MEAN CORPUSCULAR VOLUME 91.1 fl (80.0-96.0); MONO # 0.4 10^3/uL (0.0-0.8); NEUTROPHILS # 2.1 10^3/uL (1.5-8.5); NEUTROPHILS % 45.1 % (36.0-66.0); PLATELET COUNT, AUTOMATED 153 10^3/uL (150-450); RED BLOOD COUNT 3.25 10^6/uL (4.00-5.40); WHITE BLOOD COUNT 4.6 10^3/uL (4.0-10.0)
[2020-07-05 05:41] LABS: BLOOD UREA NITROGEN 4 MG/DL (7-18); CARBON DIOXIDE LEVEL 22 MEQ/L (21-32); CHLORIDE LEVEL 112 MEQ/L (98-107); CREATININE FOR GFR 0.45 MG/DL (0.55-1.30); GLOMERULAR FILTRATION RATE > 60.0 (>60); GLUCOSE, FASTING 86 MG/DL (70-100); POTASSIUM SERUM 3.3 MEQ/L (3.5-5.1); SODIUM LEVEL 139 MEQ/L (136-145)
[2020-07-05 06:00] VITALS: BP 120/63
[2020-07-05] MEDS ORDERED: INFLUENZA QUADRIVALENT PF VACCINE 0.5ML SYRINGE IM ONE (09:00)
[2020-07-05] MEDS ORDERED: POTASSIUM CHLORIDE 10 MEQ SR TABLET PO ONE (09:00)
[2020-07-05 10:00] VITALS: BP 108/75
[2020-07-05] MEDS: SUCRALFATE SUSP 1GM/10ML UD PO SCH ×3 (10:20→17:25)
--- NOTE | 2020-07-05 10:21 | IPNPDOC ---
Text Note Date of Service The patient was seen on 07/05/20. NOTE SUBJECTIVE: Had 1 medium bowel movement and 2 more mucoid small bowel movements. No other complaints. PHYSICAL EXAMINATION: VITAL SIGNS: Please see below. GENERAL APPEARANCE: young well nourished female laying in bed in no distress. HEENT: NC/AT, MMM, anicteric eyes. RESPIRATORY: clear to auscultation, no ronchi or wheezing CARDIOVASCULAR: Normal s1, s2 no rub/murmur or gallop ABDOMEN: soft , nontender, armin sounds normal EXTREMITIES: No edema NEUROLOGICAL: No focal neurodeficits. PSYCHIATRIC: Alert, oriented x 3 LABORATORY DATA: Please see below. ASSESSMENT/PLAN: 19 year old 16 weeks patient admitted under the PICKING BELT OPERATOR/OBS service for ongoing GI symptoms and weight loss. Patient complained of having intermittent epigastric pain which comes in spasms for about 6 months. The spasmodic pain would often start in the epigastrium and then move down to the lower abdomen. When the spasms come they are about6/10 in intensity. She often feels pain in the lower abdomen when she passes urine. She feels full after eating small amounts of food. She has been changing her diet for past 6 months to try to see what is bothering her stomach. She also complains of constipation with dark colored either hard string like stools or dark mushy stools for 6 months. The past 2 weeks she has been severely constipated with only 2 bowel movements. Till last year her bowel habits were regular though she she used to go every 2 to 3 days but did not think it abnormal. She reports loss of about 30 to 40 lbs over the past 6 months. Constipation, weight loss, abdominal pain, nausea US abdomen negative See by GI. Most probably Gastritis. Started on PPI, pyridostigmine and sucralfate. regular diet. 16 weeks health monitoring as per OB Asthma albuterol prn. VS,Fishbone, I+O VS, Fishbone, I+O Laboratory Tests 07/04/20 10:27 07/04/20 12:56 07/05/20 05:02 Vital Signs Date Time Temp Pulse Resp B/P (MAP) Pulse Ox O2 Delivery O2 Flow Rate FiO2 07/05/20 06:00 98.1 71 18 120/63 (82) 99 Room Air I&O- Last 24 Hours up to 6 AM 07/05/20 06:00 Intake Total 1450 ml Output Total 1000 ml Balance 450 ml YESSENIA MENDOZA MD Jul 05, 2020 10:21
[2020-07-05] MEDS: PRENATAL VITAMINS CHEWABLE TABLET PO SCH (10:29)
[2020-07-05] MEDS: MIRALAX *UNIT DOSE* 17GM PACKET PO SCH ×2 (10:29→22:07)
[2020-07-05] MEDS: PYRIDOXINE 50 MG TAB PO SCH ×2 (10:36→17:25)
[2020-07-05 14:00] VITALS: BP 105/55
--- NOTE | 2020-07-05 16:38 | CR.PDOC ---
General Date of Consultation: Jul 04, 2020 Referring Provider: ELHAM BRITT DO Attending Physician: ASYA SANTANA MD Consultation Primary physician/ hospitalist: Dr. Britt ( OBGYN)/ Dr. Andrea Reason for consult: Abdominal pain and weight loss. HPI: 19 year old female patient with BA, multiple miscarriages, currently 16 weeks , was admitted by OBGYN for persistent abdominal pain, constipation and weight loss. GI consulted for the same. Patient reports her symptoms started around November when she has D&C after miscarriage, when she had lower abdominal pain for which she received Percocet for pain. Since then she wad severe worsening of constipation (baseline bowel movements once every 203 days and since then once every 7- 10 days with small bowel movements only). She started having abdominal pain since around december 2019 with mild nausea when she was again found to be . She initially felt the symptoms likely from related and started doing dietary changes with small meals and not completing even a single meal per day. She also reports not being able to eat due to concern for abdominal pain and her nausea and vomiting related to is only mild. She reports dark string like stools and is anxious about the abdominal pain. She did try some OTC laxatives but not consistently and no response from them Pertinent negative GI symptoms: Patient denies fever, sick contacts, recent travel, diarrhea, loss of appetite. No history of hematemesis, melena or hematochezia. Review of Systems: GI: as stated above CVS: No chest pain, No palpitations, No leg swelling. RS: No Shortness of breath, No Wheezing, no cough CAR BODY INSPECTOR: No dizziness, No motor weakness, No sensory problems Hematology: No bruising, No gum bleeding, Musculoskeletal: No joint pain, ambulating well. Skin: No rash : No hematuria, No burning sensation of the urine ENT: No ear discharge/ pain, No dysphagia. Eyes: No photophobia. Jaundice Home medications: reviewed. Antithrombotic agents - none Medical h/o: As above. Surgical h/o: None on abdomen. Social h/o: Alcohol Denies , smoking Denies, IVDA/ drugs Denies . Family h/o of GI cancers - distant grand parent with colon cancer. Prior Endoscopies: none. Patient reports previously been seen in [place] [facility] who recommended EGD and Colonoscopy, prior to her but since she got they did not follow up. Prior GI evaluations: None in [facility]. Exam: Vitals: reviewed General: Alert and oriented x 3, not in distress HEENT: NO pallor, no icterus. Normal oropharynx, NO cervical lymph nodes. Chest: symmetric with bilateral clear air entry, CVS: S1, S2 heard, normal, no murmurs. Abdomen: non-distended, no surgical scars, soft, non-tender, no palpable masses, normal bowel sounds heard. Rectal exam: Patient refused / Deferred at this time. Extremities: no pedal edema, pulses palpable. CAR BODY INSPECTOR: no focal motor or sensory deficits. Moves all extremities Skin: no rash. Labs: reviewed. Imaging: reviewed. Ultrasound abdomen: normal. No gallstones. Impression: -- Abdominal pain, upper and lower abdomen, with severe constipation and poor food tolerance from abdominal pain, and unintentional weight loss, prior testing negative for H> pylori, negative stool Occult blood DDx-- PUD vs dyspepsia vs Chronic idiopathic constipation vs IBS- C. Recommendations: - Patient educated about the test results, possible differential diagnoses and All questions answered. - Will start on omeprazole 40 mg daily for 4 weeks. to be taken electric meter tester helper on empty stomach. - Sucralfate 1gm/ 10ml liquid upto 3 times daily prior to meals for 4 weeks. - Antireflux measures- Frequent meals, small meals, laying on left side when sleeping, elevated of head end of the bed, avoiding late meals, avoiding tight fitting clothes, avoid foods causing acid reflux ( mint, coffee, chocolate etc). - Short course of pyridoxine (Vitamin B6). - For constipation will start on Miralax twice daily for atleast 1-2 weeks and depending on the response to add or adjust laxatives. - Based on the clinical picture, it appears that the weight loss is related to poor oral intake from above symptoms and should improve once the above symptoms are controlled. Will suggest adding nutrition supplements with ensure etc as nee ded. - If persistent symptoms despite control of above symptoms then to consider endoscopic work up. Or else to plan the endoscopies after the delivery based on the risks and benefits. Patient is educated about the endoscopic procedures, indications, risks (bleeding, perforation, infection, hypotension, respiratory depression, allergy, need for endotracheal intubation, surgery, colostomy, cardiac arrest, even ), benefits, limitations (e.g., missing a lesion), and all other alternatives (including no intervention. Patient did not want to proceed with procedures at this time and agreed with above plan of care. Plan of care discussed with patient and primary team. Vital Signs/I&O Vital Signs Date Time Temp Pulse Resp B/P (MAP) Pulse Ox O2 Delivery O2 Flow Rate FiO2 07/05/20 14:00 97.4 78 17 105/55 (72) 99 Room Air I&O- Last 24 Hours up to 6 AM 07/05/20 06:00 Intake Total 1450 ml Output Total 1000 ml Balance 450 ml Laboratory Data Labs 24H Laboratory Tests 2 07/05/20 05:02: Immature Granulocyte % (Auto) 0.4, Neutrophils (%) (Auto) 45.1, Lymphocytes (%) (Auto) 41.4, Monocytes (%) (Auto) 9.0H, Eosinophils (%) (Auto) 3.7H, Basophils (%) (Auto) 0.4, Neutrophils # (Auto) 2.1, Lymphocytes # (Auto) 1.9, Monocytes # (Auto) 0.4, Eosinophils # (Auto) 0.2, Basophils # (Auto) 0.0, Nucleated Red Blood Cells % (auto) 0.0, Anion Gap 5L, Glomerular Filtration Rate > 60.0, Calcium Level 8.0L CBC/BMP Laboratory Tests 07/05/20 05:02 Microbiology Microbiology 07/04/20 Stool Occult Blood (JOANN) - Final, Complete Allergies Coded Allergies: No Known Allergies (Unverified , 06/14/20) Home Medications Scheduled PRN Albuterol Sulfate (Ventolin Hfa) 18 Gm Hfa.aer.ad, 2 PUFFS INH Q4H PRN for SOB/WHEEZING, (Reported) ASYA SANTANA MD Jul 05, 2020 16:38
[2020-07-05 18:00] VITALS: BP 103/56
[2020-07-05 22:00] VITALS: BP 121/68
[2020-07-06 02:00] VITALS: BP 94/62
[2020-07-06] MEDS: OMEPRAZOLE 20 MG CAP PO SCH (05:52)
[2020-07-06 06:00] VITALS: BP 98/60
[2020-07-06 06:23] LABS: BASO % 0.2 % (0.0-1.0); EOS # 0.2 10^3/uL (0.0-0.5); EOS % 4.1 % (0.0-3.0); HEMATOCRIT 33.4 % (36.0-47.0); HEMOGLOBIN 11.2 g/dl (12.0-15.5); LYMPH # 1.5 10^3/uL (1.5-5.0); LYMPH % 28.6 % (24.0-44.0); MEAN CORPUSCULAR HEMOGLOBIN 30.9 pg (27.0-33.0); MEAN CORPUSCULAR HGB CONC 33.5 g/dl (32.0-36.5); MEAN CORPUSCULAR VOLUME 92.3 fl (80.0-96.0); MONO # 0.4 10^3/uL (0.0-0.8); MONO % 6.8 % (0.0-5.0); NEUTROPHILS # 3.1 10^3/uL (1.5-8.5); NEUTROPHILS % 59.9 % (36.0-66.0); PLATELET COUNT, AUTOMATED 173 10^3/uL (150-450); RED BLOOD COUNT 3.62 10^6/uL (4.00-5.40); WHITE BLOOD COUNT 5.1 10^3/uL (4.0-10.0)
[2020-07-06 06:51] LABS: BLOOD UREA NITROGEN 4 MG/DL (7-18); CALCIUM LEVEL 8.7 MG/DL (8.5-10.1); CARBON DIOXIDE LEVEL 25 MEQ/L (21-32); CHLORIDE LEVEL 109 MEQ/L (98-107); CREATININE FOR GFR 0.53 MG/DL (0.55-1.30); GLOMERULAR FILTRATION RATE > 60.0 (>60); GLUCOSE, FASTING 78 MG/DL (70-100); POTASSIUM SERUM 3.9 MEQ/L (3.5-5.1); SODIUM LEVEL 140 MEQ/L (136-145)
[2020-07-06] MEDS: PRENATAL VITAMINS CHEWABLE TABLET PO SCH (08:02)
[2020-07-06] MEDS: SUCRALFATE SUSP 1GM/10ML UD PO SCH (08:02)
[2020-07-06] MEDS: PYRIDOXINE 50 MG TAB PO SCH (08:03)
[2020-07-06] MEDS: MIRALAX *UNIT DOSE* 17GM PACKET PO SCH (08:03)
[2020-07-06 10:00] VITALS: BP 110/72
[2020-07-06] MEDS ORDERED: SUCR1ORA PO (10:30)
[2020-07-06] MEDS ORDERED: B-650TAB2 PO (10:30)
[2020-07-06] MEDS ORDERED: OMEP-218 PO (10:30)
[2020-07-06] MEDS ORDERED: PEG1POW PO (10:30)
[2020-07-06] MEDS ORDERED: PRENCHW PO (10:32)
[2020-07-06] MEDS ORDERED: BISA10SU PR (11:58)
--- NOTE | 2020-07-06 11:59 | DS.PDOC ---
Discharge Summary General Date of Admission Jul 04, 2020 at 09:42 Date of Discharge 07/06/20 Discharge Summary PROCEDURES PERFORMED DURING STAY: [None]. DISCHARGE DIAGNOSES: Acute gastritis Constipation Weight loss due to poor oral intake Asthma COMPLICATIONS/CHIEF COMPLAINT: G.i. Symptoms. HOSPITAL COURSE: 19 year old 16 weeks patient admitted under the [facility]/OBS service for ongoing GI symptoms and weight loss. Patient complained of having intermittent epigastric pain which comes in spasms for about 6 months. The spasmodic pain would often start in the epigastrium and then move down to the lower abdomen. When the spasms come they are about6/10 in intensity. She often feels pain in the lower abdomen when she passes urine. She feels full after eating small amounts of food. She has been changing her diet for past 6 months to try to see what is bothering her stomach. She also complains of constipation with dark colored either hard string like stools or dark mushy stools for 6 months. The past 2 weeks she has been severely constipated with only 2 bowel movements. Till last year her bowel habits were regular though she she used to go every 2 to 3 days but did not think it abnormal. She reports loss of about 30 to 40 lbs over the past 6 months. Constipation, weight loss, abdominal pain, nausea US abdomen negative Seen by GI. Most probably Gastritis. Started on PPI, pyridoxine and sucralfate. regular diet. Severe constipation started after percocet intake at baseline her bowel habits are about 2 to 3 time per week Miralax bid for 1 to 2 weeks then as needed dulcolax suppository prn. 16 weeks health monitoring as per OB Asthma albuterol prn. DISCHARGE MEDICATIONS: Please see below. ALLERGIES: Please see below. PHYSICAL EXAMINATION ON DISCHARGE: VITAL SIGNS: Please see below. GENERAL APPEARANCE: young well nourished female laying in bed in no distress. HEENT: NC/AT, MMM, anicteric eyes. RESPIRATORY: clear to auscultation, no ronchi or wheezing CARDIOVASCULAR: Normal s1, s2 no rub/murmur or gallop ABDOMEN: soft , nontender, armin sounds normal EXTREMITIES: No edema NEUROLOGICAL: No focal neurodeficits. PSYCHIATRIC: Alert, oriented x 3 LABORATORY DATA: Please see below. ACTIVITY: [As tolerated]. DIET: As tolerated DISCHARGE PLAN: Home DISCHARGE INSTRUCTIONS: Follow up OBS/[employer] [facility] DISCHARGE CONDITION: [Stable]. TIME SPENT ON DISCHARGE: 35 minutes. Vital Signs/I&Os Vital Signs Date Time Temp Pulse Resp B/P (MAP) Pulse Ox O2 Delivery O2 Flow Rate FiO2 07/06/20 10:00 98.1 88 18 110/72 (85) 100 Room Air I&O- Last 24 Hours up to 6 AM 07/06/20 05:59 Intake Total 1380 ml Output Total 1000 ml Balance 380 ml Laboratory Data Labs 24H Laboratory Tests 2 07/06/20 05:56: Immature Granulocyte % (Auto) 0.4, Neutrophils (%) (Auto) 59.9, Lymphocytes (%) (Auto) 28.6, Monocytes (%) (Auto) 6.8H, Eosinophils (%) (Auto) 4.1H, Basophils (%) (Auto) 0.2, Neutrophils # (Auto) 3.1, Lymphocytes # (Auto) 1.5, Monocytes # (Auto) 0.4, Eosinophils # (Auto) 0.2, Basophils # (Auto) 0.0, Nucleated Red Blood Cells % (auto) 0.0, Anion Gap 6L, Glomerular Filtration Rate > 60.0, Calcium Level 8.7 CBC/BMP Laboratory Tests 07/06/20 05:56 Microbiology Microbiology 07/04/20 Stool Occult Blood (JOANN) - Final, Complete Discharge Medications Scheduled Omeprazole (Omeprazole) 20 Mg Capsule.dr, 40 MG PO DAILY@0600 Pnv No.118/Iron Fumarate/FA ( 19 Chewable Tablet) 1 Each Tab.chew, 1 TAB PO DAILY Polyethylene Glycol 3350 (Polyethylene Glycol 3350) 17 Gm Powd.pack, 1 PKT PO BID Take for 1 to 2 weeks then as needed for constipation. Hold if diarrhea. Pyridoxine HCl (Vitamin B6) (Vitamin B-6) 50 Mg Tablet, 25 MG PO BIDWM Sucralfate (Sucralfate) 1 Gm/10 Ml Oral.susp, 1 GM PO AC Scheduled PRN Albuterol Sulfate (Ventolin Hfa) 18 Gm Hfa.aer.ad, 2 PUFFS INH Q4H PRN for SOB/WHEEZING, (Reported) Bisacodyl (Bisacodyl) 10 Mg Supp.rect, 10 MG GA DAILYPRN PRN for CONSTIPATION Allergies Coded Allergies: No Known Allergies (Unverified , 06/14/20) YESSENIA MENDOZA MD Jul 06, 2020 11:59
== END 2020-07-06 12:40 | disposition home or self-care (01) | DRG 833 ==
LOC: M MSPAV 07-04 09:42
PROVIDERS: ADMIT Obstetrics & Gynecology; ATTEND Internal Medicine Nephrology
DX: O99.612 Diseases of the digestive system complicating pregnancy, second trimester (principal); K59.00 Constipation, unspecified; J45.909 Unspecified asthma, uncomplicated; R63.4 Abnormal weight loss; Z3A.16 16 weeks gestation of pregnancy; Z79.899 Other long term (current) drug therapy; K29.90 Gastroduodenitis, unspecified, without bleeding; O99.512 Diseases of the respiratory system complicating pregnancy, second trimester

== ENCOUNTER 2020-07-04 06:42 | Emergency (ER) | payer OTHER ==
[~2020-07-04] VITALS: Ht 177.8 cm; Wt 68.1 kg
[2020-07-04] MEDS ORDERED: NS 1,000 ML IV ONE (07:45)
[2020-07-04 07:54] LABS: BASO % 0.4 % (0.0-1.0); EOS # 0.2 10^3/uL (0.0-0.5); EOS % 3.6 % (0.0-3.0); HEMATOCRIT 33.4 % (36.0-47.0); HEMOGLOBIN 11.1 g/dl (12.0-15.5); LYMPH # 1.7 10^3/uL (1.5-5.0); LYMPH % 32.4 % (24.0-44.0); MEAN CORPUSCULAR HEMOGLOBIN 30.5 pg (27.0-33.0); MEAN CORPUSCULAR HGB CONC 33.2 g/dl (32.0-36.5); MEAN CORPUSCULAR VOLUME 91.8 fl (80.0-96.0); MONO # 0.4 10^3/uL (0.0-0.8); MONO % 6.9 % (0.0-5.0); NEUTROPHILS # 2.9 10^3/uL (1.5-8.5); NEUTROPHILS % 56.3 % (36.0-66.0); PLATELET COUNT, AUTOMATED 179 10^3/uL (150-450); RED BLOOD COUNT 3.64 10^6/uL (4.00-5.40); WHITE BLOOD COUNT 5.2 10^3/uL (4.0-10.0)
[2020-07-04 08:23] LABS: ALBUMIN 3.2 GM/DL (3.2-5.2); ALT/SGPT 10 U/L (12-78); BILIRUBIN,DIRECT 0.1 MG/DL (0.0-0.2); BILIRUBIN,TOTAL 0.4 MG/DL (0.2-1.0); BLOOD UREA NITROGEN 10 MG/DL (7-18); CALCIUM LEVEL 8.6 MG/DL (8.5-10.1); CARBON DIOXIDE LEVEL 25 MEQ/L (21-32); CHLORIDE LEVEL 110 MEQ/L (98-107); CREATININE FOR GFR 0.64 MG/DL (0.55-1.30); GLOMERULAR FILTRATION RATE > 60.0 (>60); GLUCOSE, FASTING 82 MG/DL (70-100); LIPASE 52 U/L (73-393); POTASSIUM SERUM 3.4 MEQ/L (3.5-5.1); SODIUM LEVEL 141 MEQ/L (136-145); TOTAL PROTEIN 6.8 GM/DL (6.4-8.2)
[2020-07-04] MEDS ORDERED: PREN1TAB14 PO (08:55)
[2020-07-04] MEDS ORDERED: SERT25TA21 PO (08:55)
[2020-07-04] MEDS ORDERED: VENTAER INH (09:20)
[2020-07-04 09:36] VITALS: BP 112/70
--- NOTE | 2020-07-04 10:00 | REPVR ---
PROCEDURE INFORMATION: Exam: US Abdomen, Limited; Right Upper Quadrant Exam date and time: 07/04/2020 9:31 AM Age: 19 years old Clinical indication: Abdominal pain; Epigastric; ; Additional info: Ruq/epigastric pain TECHNIQUE: Imaging protocol: US abdomen. Real time ultrasound with image documentation. Limited exam focused on the right upper quadrant. COMPARISON: No relevant prior studies available. FINDINGS: Liver: No focal hepatic mass. Gallbladder: No cholelithiasis, gallbladder wall edema, or pericholecystic fluid. Common bile duct: Normal caliber of the visualized common bile duct measuring 2 mm in diameter. Pancreas: No acute sonographic abnormality in the visualized pancreas. Right kidney: Normal right renal morphology. No hydronephrosis. IMPRESSION: No acute sonographic abnormality in the visualized right upper quadrant. Electronically signed by: Kobi Maher On 07/04/2020 10:00:40 AM
--- NOTE | 2020-07-04 10:04 | REPVR ---
PROCEDURE INFORMATION: Exam: US First Trimester, Transabdominal Exam date and time: 07/04/2020 9:31 AM Age: 19 years old Clinical indication: complicated by abdominal or pelvic pain; Generalized abdominal pain; Second trimester; Gestational age or lmp: 16 weeks; ; Additional info: Abd pain TECHNIQUE: Imaging protocol: Real-time transabdominal obstetrical ultrasound of the maternal pelvis and a first trimester , less than 14 weeks 0 days, with image documentation. COMPARISON: US OB<14WKS SINGLE OR 1ST GEST 06/19/2020 10:09 AM FINDINGS: Embryonic/ heart rate: Documented cardiac activity with a heart rate of 146 bpm. Presentation: Single living intrauterine gestation in variable lie. Placenta: Posterior placenta. Amniotic fluid: Amniotic fluid volume subjectively within normal limits. BIOMETRY: Gestational age (AUA): Limited assessment of anatomy due to early gestational age. Estimated gestational age is 16 weeks +1 day based on current sonographic parameters. MATERNAL: Cervix: Cervical length measurement of 4.3 cm. IMPRESSION: Single living intrauterine gestation with an estimated gestational age of 16 weeks +1 day. Electronically signed by: Kobi Maher On 07/04/2020 10:03:44 AM
[2020-07-05] MEDS ORDERED: INFLUENZA QUADRIVALENT PF VACCINE 0.5ML SYRINGE IM ONE (09:00)
== END 2020-07-04 09:40 | disposition other institution (70) ==
LOC: M ED 06:42
DX: O26.892 Other specified pregnancy related conditions, second trimester (principal); R10.9 Unspecified abdominal pain; Z3A.16 16 weeks gestation of pregnancy; Z79.51 Long term (current) use of inhaled steroids

== ENCOUNTER → 2020-07-20 | Outpatient (CLI) | payer OTHER ==
[~2020-07-20] MED LIST changes: +B-650TAB2 PO; +BISA10SU PR; +OMEP-218 PO; +PEG1POW PO; +PREN1TAB14 PO; +PRENCHW PO; +SERT25TA21 PO; +SUCR1ORA PO
--- NOTE | 2020-07-29 08:23 | REP ---
OB ULTRASOUND ANATOMY SCAN TECHNIQUE: Real-time sonographic evaluation of the gravid uterus is performed. FINDINGS: There is a single living intrauterine gestation with an estimated gestational age of 18 weeks 3 days, estimated date of confinement (EDC) 12/18/2020. Todays measurements indicate appropriate growth. BIOMETRY CHART: BPD 41 mm 18 weeks 2 days 49th percentile HC 147 mm 17 weeks 6 days 30th percentile AC 123 mm 18 weeks 0 days 38th percentile Femur length 28 mm 18 weeks 4 days 54th percentile AC/HC ratio 1.20 Normal 1.07 to 1.26 Estimated weight 229 grams 35th percentile position is cephalic. Placenta is posterior and grade 1 with no previa or abruption. heart rate 158 beats per minute. Visualized anatomy includes lateral ventricles, posterior fossa, spine, stomach, four chamber heart, ventricular outflow tracts, kidneys, bladder, cord insertion, and three-vessel cord, which are all grossly unremarkable. There is an echogenic focus in the left ventricle of the heart likely related to chordae tendineae. The facial structures are not well seen due to position. Amniotic fluid appears within normal limits. MTDD
== END ==
LOC: M WHC 11:40
PROVIDERS: ATTEND Advanced Practice Midwife
DX: Z36.89 Encounter for other specified antenatal screening (principal); Z79.899 Other long term (current) drug therapy; Z3A.18 18 weeks gestation of pregnancy

== ENCOUNTER → 2020-07-20 | Outpatient (CLI) | payer OTHER ==
[2020-07-23 12:08] LABS: HEMOGLOBIN A 97.7 % (96.4-98.8); HEMOGLOBIN A2 2.3 % (1.8-3.2); HGB SOLUBILITY Negative (Negative)
== END ==
LOC: M PLALAB 12:47
PROVIDERS: ATTEND Advanced Practice Midwife
DX: Z36.89 Encounter for other specified antenatal screening (principal)

== ENCOUNTER → 2020-08-25 | Outpatient (CLI) | payer OTHER ==
[~2020-08-25] MED LIST changes: +OMEP40CA97 PO
--- NOTE | 2020-08-25 14:38 | REP ---
INDICATION: F/U ANATOMY. COMPARISON: Comparison study July 20, 2020.. TECHNIQUE: Transabdominal obstetric sonography. FINDINGS: Scanning through the gravid uterus demonstrates a viable single intrauterine gestation in cephalic lie. motion is observed and heart rate is recorded at 147 beats per minute. A posterior placenta is seen, grade 1, without evidence of placenta previa. Amniotic fluid is subjectively normal. Closed cervical length is measured at 3.0 cm transabdominally. No extrauterine abnormality is observed. The following anatomic structures are identified today and felt to be unremarkable: face and profile nose and lips, abdominal wall cord insertion. Four-chamber heart view again shows 2 echogenic foci in the left ventricle. Biometry chart: BPD 5.5 cm, 22 weeks 6 days Head circumference 20.6 cm, 22 weeks 5 days Abdominal circumference 18.8 cm, 23 weeks 4 days Femur length 4.2 cm 23 weeks 4 days Humeral length 3.9 cm, 23 weeks 6 days HC AC ratio normal 1.10 Cephalic index normal 0.74 Estimated weight 597 g, 1 lb 5 oz, 49th percentile for 23 weeks 4 days IMPRESSION: Viable single intrauterine gestation at 23 weeks 2 days by today's composite sonographic criteria. ALEXI by today's sonography December 20, 2020. No complication identified. There are 2 tiny echogenic foci in the left ventricle. These are likely normal chordee tendineae. In conjunction with the prior study, anatomic survey is felt to be complete. v <Electronically signed by Tiago Anton > 08/25/20 [id number]
== END ==
LOC: M WHC 13:36
PROVIDERS: ATTEND Advanced Practice Midwife
DX: O28.3 Abnormal ultrasonic finding on antenatal screening of mother (principal); Z3A.22 22 weeks gestation of pregnancy; O26.22 Pregnancy care for patient with recurrent pregnancy loss, second trimester
CPT/HCPCS: 76816; G0463

== ENCOUNTER → 2020-09-09 | Outpatient (REF) | LOC: M LAB 11:41 | PROVIDERS: ATTEND Nurse Practitioner Adult Health | DX: Z02.89 Encounter for other administrative examinations (principal) ==

== ENCOUNTER 2020-09-10 17:08 | Outpatient (CLI) | payer OTHER ==
[~2020-09-10] VITALS: Ht 177.8 cm; Wt 77.7 kg
[~2020-09-10 17:08] MED LIST changes: -OMEP40CA97 PO
[2020-09-10 17:26] VITALS: BP 110/73
[2020-09-10] MEDS ORDERED: OMEP40CA97 PO (17:35)
[2020-09-10 18:53] VITALS: BP 111/72
--- NOTE | 2020-09-10 19:34 | IPNPDOC ---
Text Note Date of Service The patient was seen on 09/10/20. NOTE 19yo at 26wks gestation presenting to L&D for c/o BRBPR after BM this evening. She also endorses cramping abdominal pain. She reports an extensive h/o black tarry stools, constipation, n/v and abdominal pain since prior to but that work-up was not completed due to her becoming . She expresses frustration with her GI care. Denies VB, LOF, abnormal vaginal discharge, or DFM. Vitals: normotensive, afebrile NST: appropriate for gestational age Sidell: quiet - no ctx's PE: Gen: well-appearing, sitting upright in bed, in NAD HEENT: NC/AT, airway patent and self-maintained ABD: soft, gravid, nondistended, nontender to palpation : NEFG, no abnormal vaginal discharge, no VB cervix closed/thick/high Rectum: No blood seen on exam, small external hemorrhoid, internal hemorrhoids palpated Ext: no edema A/P: 19yo at 26wks presenting for c/o BRBPR after BM this evening accompanied by cramping abdominal pain. Reassuring status, patient not in labor. Suspect GI etiology. Patient reports having alternating constipation vs soft tarry stools and being on several stool softeners and GI medications. Counseled patient to try metamucil to regulate BMs Counseled patient to attempt bland diet (consider AIP diet to evaluate for autoimmune/allergy etiology) PTL precautions reviewed Patient counseled on strict return precautions for worsening symptoms Patient to f/u in OB clinic as scheduled in 2 weeks or sooner All questions answered. VS,Fishbone, I+O VS, Fishbone, I+O Vital Signs Date Time Temp Pulse Resp B/P (MAP) Pulse Ox O2 Delivery O2 Flow Rate FiO2 09/10/20 18:53 98.3 76 16 111/72 (85) Room Air 09/10/20 17:26 99 BELL PETERSON DO Sep 10, 2020 19:34
== END 2020-09-10 19:12 ==
LOC: M LDO 17:08
DX: O99.612 Diseases of the digestive system complicating pregnancy, second trimester (principal); K62.5 Hemorrhage of anus and rectum; O22.42 Hemorrhoids in pregnancy, second trimester; Z3A.26 26 weeks gestation of pregnancy
CPT/HCPCS: 59025; G0378; G0463

== ENCOUNTER → 2020-09-24 | Outpatient (REF) | payer OTHER ==
[~2020-09-24] MED LIST changes: +OMEP40CA97 PO
[2020-09-24 10:36] LABS: HEMATOCRIT 37.6 % (36.0-47.0); HEMOGLOBIN 12.3 g/dl (12.0-15.5); MEAN CORPUSCULAR HEMOGLOBIN 31.8 pg (27.0-33.0); MEAN CORPUSCULAR HGB CONC 32.7 g/dl (32.0-36.5); MEAN CORPUSCULAR VOLUME 97.2 fl (80.0-96.0); PLATELET COUNT, AUTOMATED 160 10^3/uL (150-450); RED BLOOD COUNT 3.87 10^6/uL (4.00-5.40); WHITE BLOOD COUNT 7.6 10^3/uL (4.0-10.0)
== END ==
LOC: M PLALAB 08:07
PROVIDERS: ATTEND Advanced Practice Midwife
DX: Z3A.01 Less than 8 weeks gestation of pregnancy (principal)

== ENCOUNTER → 2020-12-08 | Outpatient (REF) | payer OTHER ==
[~2020-12-08] MED LIST changes: +MAPA500T2 PO; -PEG1POW PO; +POLY17PO18 PO
== END ==
LOC: M PLALAB 12:34
PROVIDERS: ATTEND Obstetrics & Gynecology
DX: Z36.85 Encounter for antenatal screening for Streptococcus B (principal); Z3A.38 38 weeks gestation of pregnancy; Z53.9 Procedure and treatment not carried out, unspecified reason

== ENCOUNTER 2020-12-21 09:56 | Outpatient (CLI) | payer OTHER ==
[~2020-12-21] VITALS: Ht 177.8 cm; Wt 97.4 kg
[~2020-12-21 09:56] MED LIST changes: -MAPA500T2 PO
[2020-12-21] MEDS ORDERED: LR 1,000 ML IV ONE (10:05)
[2020-12-21] MEDS ORDERED: LR 1,000 ML IV SCH (10:05)
[2020-12-21 10:38] LABS: HEMATOCRIT 36.1 % (36.0-47.0); HEMOGLOBIN 11.7 g/dl (12.0-15.5); MEAN CORPUSCULAR HEMOGLOBIN 30.9 pg (27.0-33.0); MEAN CORPUSCULAR HGB CONC 32.4 g/dl (32.0-36.5); MEAN CORPUSCULAR VOLUME 95.3 fl (80.0-96.0); PLATELET COUNT, AUTOMATED 162 10^3/uL (150-450); RED BLOOD COUNT 3.79 10^6/uL (4.00-5.40)
[2020-12-21 10:50] VITALS: BP 129/77
[2020-12-21] MEDS ORDERED: MAPA500T2 PO (10:55)
[2020-12-21 10:58] LABS: ALT/SGPT 13 U/L (12-78); BILIRUBIN,TOTAL 0.2 MG/DL (0.2-1.0); CREATININE FOR GFR 0.79 MG/DL (0.55-1.30); GLOMERULAR FILTRATION RATE > 60.0 (>60); LDH LACTATE DEHYDROGENASE 147 U/L (84-246); URIC ACID 4.8 MG/DL (2.6-6.0)
[2020-12-21] MEDS ORDERED: FIORICET TAB PO ONE (11:00)
[2020-12-21 12:10] LABS: CREATININE,RANDOM URINE 72.7 MG/DL
[2020-12-21 12:51] VITALS: BP 122/78
[2020-12-21] MEDS ORDERED: FAMOTIDINE INJ 20MG/2ML VIAL (S0028 PER 1) IVP ONE (13:00)
--- NOTE | 2020-12-21 14:18 | IPNPDOC ---
Obstetrical Progress Note Date of Service Dec 21, 2020 Subjective 20 yo ALEXI of 18 DEC 2020 presents to L&D from the clinic with headache and spotty vision. She reports natalie thakkar contractions. She denies leaking of fluid, vaginal bleeding, and reports positive movement. She reports that she has only taken 325 mg of tylenol once today. She reports that she has significant long standing GI issues and she has not been to hydrate well or eat. She is followed by GI at the [facility]. Objective Vital Signs Date Time Temp Pulse Resp B/P (MAP) Pulse Ox O2 Delivery O2 Flow Rate FiO2 12/21/20 10:50 96.9 89 20 129/77 (94) NST x 60 minutes and is reactive Assessment: Dehydration Headache GERD Assessment Heart Rate (FHR): 135 Variability: Moderate Accelerations: Present Decelerations: None Tocometer Contractions: Yes Frequency: other (occasional) Sterile Vaginal Examination Dilation: 1cm Effacement (%): 30% Station: -3 Cervical Position: Posterior Postion/Presentation: Cephalic presentation Assessment and Plan Age: 20 : 5 Term: 0 Pre-term: 0 Abortions: 4 Livin EGA at Admission: 40 (+3) Weeks & Days 40w3d Status: Reassuring Group B Streptococcus: Negative Anticipate: Other (Discharge to home, certified, not in labor) Additional Comments Recommended to hydrate well with 3-4 liters of water per day FKC and PTL precautions discussed Recommended to keep appointments at [facility] Return to L&D if symptoms worsen or persist 30 minutes of time spent with the patient for assessment, discussing IOL, scheduling IOL, and plan of care. SHERRI LEONARD CNM Dec 21, 2020 11:52
== END 2020-12-21 12:58 | disposition home or self-care (01) ==
LOC: M LDO 09:56
PROVIDERS: ATTEND Registered Nurse Maternal Newborn
DX: O99.353 Diseases of the nervous system complicating pregnancy, third trimester (principal); R51.9 Headache, unspecified; O99.283 Endocrine, nutritional and metabolic diseases complicating pregnancy, third trimester; E86.0 Dehydration; O99.613 Diseases of the digestive system complicating pregnancy, third trimester; K21.9 Gastro-esophageal reflux disease without esophagitis; Z91.040 Latex allergy status; Z3A.40 40 weeks gestation of pregnancy

== ENCOUNTER 2020-12-26 15:14 | Inpatient (IN) | payer OTHER ==
[~2020-12-26] VITALS: Ht 179.1 cm; Wt 98.2 kg
[2020-12-26] VITALS (7 sets, daily range): BP systolic 118–143; BP diastolic 66–91
[~2020-12-26 15:14] MED LIST changes: +MAPA500T2 PO
[2020-12-26 16:24] LABS: HEMATOCRIT 37.3 % (36.0-47.0); MEAN CORPUSCULAR HEMOGLOBIN 30.9 pg (27.0-33.0); MEAN CORPUSCULAR HGB CONC 32.2 g/dl (32.0-36.5); MEAN CORPUSCULAR VOLUME 96.1 fl (80.0-96.0); PLATELET COUNT, AUTOMATED 168 10^3/uL (150-450); RED BLOOD COUNT 3.88 10^6/uL (4.00-5.40); WHITE BLOOD COUNT 9.9 10^3/uL (4.0-10.0)
[2020-12-26] MEDS ORDERED: miSOPROStol 50MCG 1/2 TABLET PO ONE (17:00)
--- NOTE | 2020-12-26 17:57 | HPEPDOC ---
Obstetrical History & Physical General Date of Admission Dec 26, 2020 at 15:14 History of Present Illness 19yo que [id number] @41+1, complicated by asthma, excessive weight gain, and psych history presenting for IOL . Denies bleeding, cramping, LOF, states reassuring FM. Chief Complaint: Induction of labor Information Provided By: Patient Age: 19 : 5 Term: 0 Pre-term: 0 Abortions: 4 Livin Care Care: Good Care Dating Final EDC: Dec 26, 2020 Final EDC for Daily Update: Dec 26, 2020 Final EDC by: 1st trimester (US) Estimated Date of Confinement: Dec 26, 2020 EGA at Admission: 41 (+1) Antepartum Course Diagnos(e)s asthma, excessive weigh gain, psych history Height (inches): 70 Pre- weight (lbs.): 141 Admission Weight (lbs.): 218 Change in Weight (lbs.): 77 Past Medical History Past Obstetrical History : Past Obstetrical History: Multigravida (4 SAB) Complications: No DISMANTLER History: Spontaneous (x3), Theraputic (x1) Past Medical History Medical History asthma, ulcers, psych history with inpatient admission, insomnia, reflux. HPV Surgical History: Dilatation and Curettage, [place] teeth Family History Significant Family History: Cancer (mother ovarian cancer, pgm- breast cancer), Hypertension (father) Social History Marital Status: Family situation: Spouse/partner home Psychosocial History: Depression, Emotional problems * Smoker: non-smoker Alcohol: Denies Drugs: denies Abuse Violence Screening Have you been hit/kicked/slapp: No Have you been sexually assault: No Imunizations Tdap status: current Influenza Status: current Allergies Coded Allergies: latex (Verified Allergy, Intermediate, HIVES, 12/21/20) Medications Scheduled Pnv No.118/Iron Fumarate/FA ( 19 Chewable Tablet) 1 Each Tab.chew, 1 TAB PO DAILY Polyethylene Glycol 3350 (Polyethylene Glycol 3350) 17 Gm Powd.pack, 1 PKT PO BID Take for 1 to 2 weeks then as needed for constipation. Hold if diarrhea. Sucralfate (Sucralfate) 1 Gm/10 Ml Oral.susp, 1 GM PO AC Scheduled PRN Albuterol Sulfate (Ventolin Hfa) 18 Gm Hfa.aer.ad, 2 PUFFS INH Q4H PRN for SOB/WHEEZING Omeprazole (Omeprazole) 40 Mg Capsule.dr, 40 MG PO DAILY PRN for NAUSEA Miscellaneous Medications Acetaminophen (Mapap) 500 Mg Tablet, 350 MG PO Physical Examination Physical Examination GENERAL: Alert and oriented times three. BREAST: . ABDOMEN: Gravid and non-tender to touch. FETUS: Is vertex (VTX) by sterile vaginal examination (SVE), fetus is vertex (VTX) by Miriam. HEART RATE: Regular rate and rhythm. LUNGS: Clear to auscultation (CTA). EXTREMITIES: No edema. No clonus. Vital Signs/I&O Vital Signs Date Time Temp Pulse Resp B/P (MAP) Pulse Ox O2 Delivery O2 Flow Rate FiO2 12/26/20 15:48 97.3 100 18 137/83 (101) Laboratory Data 24H LABS Laboratory Tests 2 12/26/20 15:28: Serology Scanned Report Hepatitis B Testing 12/26/20 16:19: Nucleated Red Blood Cells % (auto) 0.0 CBC/BMP Laboratory Tests 12/26/20 16:19 Pertinent Laboratoy Data Blood Type: A+ RBC Antibody Screen: Negative HIV: Negative Hepatitis B: Negative Rapid Plasma Reagin: Nonreactive Rubella: Immune Varicella: Immune Chlamydia/Gonorrhea: Negative Group B Streptococcus: Negative Quad Screen Test: Negative Anatomy Ultrasound Placenta Location: Posterior Normal Anatomy: No (isolated echogenic focus) Placenta Previa: No Vaginal Examination Dilation: 1cm Effacement: 30% Station: -3 Cervical Consistency: Soft Cervical Position: Posterior Presentation: Cephalic presentation Assessment Heart Rate (FHR): 120 Variability: Moderate Accelerations: Positive Decelerations: None Tocometer Contractions: No Strength: resting tone palp/soft Multi-drug resistant Organism: No history of MDRO Assessment/Plan Assessment Nikki is a 20-year-old (G)5 para (P)0-0-4-0 at 41+1 weeks by 16+5- week ultrasound. Presents to Labor and Delivery (L&D) for IOL. Plan Admit and orient. Supervisor Channel Process and consent. Diet: regular. Group B Streptococcus (GBS) negative. Labs and intravenous (IV) per unit protocol. Counseled on Pitocin and induction of labor (IOL) and cervical ripening. Saline lock. Anticipate [normal spontaneous delivery ()]. C-S as appropriate. ISELA ESPARZA CNM Dec 26, 2020 17:57
[2020-12-26] MEDS ORDERED: ACETAMINOPHEN 500 MG TAB PO ONE (20:00)
[2020-12-26] MEDS ORDERED: PROMETHAZINE INJ 25 MG/ML VIAL (J2550) IV ONE (21:05)
[2020-12-26] MEDS ORDERED: BUTORPHANOL 2 MG/ML INJ (J0595) IV ONE (21:05)
--- NOTE | 2020-12-26 21:14 | IPNPDOC ---
Obstetrical Progress Note Date of Service Dec 26, 2020 Subjective states feeling increased discomfort and requesting pain medication Objective Vital Signs Date Time Temp Pulse Resp B/P (MAP) Pulse Ox O2 Delivery O2 Flow Rate FiO2 12/26/20 19:26 97.7 96 20 118/71 (87) Assessment Heart Rate (FHR): 135 Variability: Moderate Accelerations: Positive Decelerations: None Tocometer Contractions: Yes Frequency: irregular Strength: palpated as mild, resting tone palp/soft Sterile Vaginal Examination Cervical Consistency: other (cervical catheter in place without movement) Assessment and Plan Age: 20 : 5 Term: 0 Pre-term: 0 Abortions: 4 Livin EGA at Admission: 41 (+1) Group B Streptococcus: Negative Anticipate: Vaginal Delivery Additional Comments Return to efm x2, continuous efm x2, monitor for change in or maternal status, 2mg stadol iv x1, 25mg phenergan iv x1, cytotec 50mg sublingual x1, evaluate for change as indicated, consider pitocin induction as appropriate ISELA ESPARZA CNM Dec 26, 2020 21:13
[2020-12-26] MEDS ORDERED: miSOPROStol 50MCG 1/2 TABLET PO SCH (21:15)
[2020-12-27] VITALS (36 sets, daily range): BP systolic 109–162; BP diastolic 62–115
[2020-12-27] MEDS ORDERED: OXYTOCIN DRIP 30 UNITS in IV 1 EA IV SCH ×2 (00:15→13:15)
[2020-12-27] MEDS ORDERED: BUTORPHANOL 2 MG/ML INJ (J0595) IV ONE (01:10)
[2020-12-27] MEDS: LR 1,000 ML IV SCH ×2 (02:44→08:35)
--- NOTE | 2020-12-27 03:58 | IPNPDOC ---
Obstetrical Progress Note Date of Service Dec 27, 2020 Subjective Pt states having questions about Pitocin Objective Vital Signs Date Time Temp Pulse Resp B/P (MAP) Pulse Ox O2 Delivery O2 Flow Rate FiO2 12/27/20 01:30 18 12/27/20 01:20 Room Air 12/27/20 00:29 85 122/82 (95) 12/26/20 23:27 98.1 Assessment Heart Rate (FHR): 140 Variability: Minimal to moderate Accelerations: Positive Decelerations: None Tocometer Contractions: Yes Frequency: every 2-5 min. Duration: greater than 60 seconds Strength: palpated as moderate, resting tone palp/soft Sterile Vaginal Examination Dilation: 5 cm Effacement (%): 70% Station: -2 Cervical Consistency: Medium Cervical Position: Posterior Postion/Presentation: Cephalic presentation (confirmed by TAUS) Assessment and Plan Age: 20 : 5 Term: 0 Pre-term: 0 Abortions: 4 Livin EGA at Admission: 41 (+2) Status: Reassuring Group B Streptococcus: Negative Anticipate: Vaginal Delivery Additional Comments Reviewed Pitocin induction, expectations for labor progress, length of time of induction of labor,movement in labor, comfort measures, breathing techniques, and options for pain control with expressed understanding. LR @125ml/hr, Initiate pitocin induction and titrate per protocol, continuous efm x2, monitor for change in or maternal status, may have epidural when desired, anticipate vaginal delivery ISELA ESPARZA CNM Dec 27, 2020 03:58
[2020-12-27] MEDS ORDERED: FENTANYL 2MCG/ML ROPIVACAINE 0.2% IN 0.9% NACL 100ML IVBAG As Ordered ONE (07:27)
[2020-12-27] MEDS ORDERED: FENTANYL/ROPIVACAINE/NACL BAG 100 ML EPIDURAL SCH (07:30)
[2020-12-27] MEDS ORDERED: diphenhydrAMINE 50MG/ML VIAL (J1200) IV PRN (07:30)
[2020-12-27] MEDS ORDERED: NALOXONE INJ 0.4MG/1ML VIAL (J2310 PER 1MG) IV PRN (07:30)
[2020-12-27] MEDS ORDERED: ONDANSETRON 4MG/2ML VIAL IV PRN (07:30)
[2020-12-27] MEDS ORDERED: EPIDURAL/PCA KEYS XX PRN (07:30)
[2020-12-27] MEDS ORDERED: LACTATED RINGER'S 1000 ML IV PRN (07:30)
[2020-12-27] MEDS ORDERED: REFRIGERATOR IV KEYS XX PRN (07:30)
[2020-12-27] MEDS ORDERED: ePHEDrine SULFATE 25 MG/5 ML(5MG/ML) SYRINGE IV PRN (07:30)
[2020-12-27] MEDS ORDERED: EPIDURAL COMMENT XX SCH (07:30)
--- NOTE | 2020-12-27 09:45 | IPNPDOC ---
Text Note Date of Service The patient was seen on 12/27/20. NOTE I introduced myself to Ms. Licona this morning as I came on shift. She's a 20 yo at 41+2 weeks gestation who was admitted yesterday afternoon for an IOL for late term . She progressed with cytotec and a balloon catheter, which was expelled spontaneously earlier this morning, and is now on pitocin. She is comfortable with an epidural in place and denies any complaints. Vitals - VSS, afebrile, normotensive, non tachycardic General - AAOX3, sitting up in bed, NAD, pleasant and conversant Abdomen - Gravid uterus, no fundal tenderness Cervix - /bbw per RN exam just now FHR tracing - Cat I with moderate variability, +accels, no decels. Ctx Q2-3 min babatunde Jordan is progressing well. Will re examine in 2 hours (or sooner as needed) and consider AROM at that time. All patient questions answered. Audra Kenny, I+O VS, Audra, I+O Laboratory Tests 12/26/20 16:19 Vital Signs Date Time Temp Pulse Resp B/P (MAP) Pulse Ox O2 Delivery O2 Flow Rate FiO2 12/27/20 08:21 100 122/73 (89) 12/27/20 06:26 97.6 18 12/27/20 01:20 Room Air KAMILA DRUMMOND DO Dec 27, 2020 09:45
--- NOTE | 2020-12-27 11:21 | IPNPDOC ---
Text Note Date of Service The patient was seen on 12/27/20. NOTE Patient feeling significantly increased pressure and an urge to push. Cervix: 9/90/0. AROM performed productive of clear fluid. FHR Cat I. Ctx regular. Continue pitocin. Brian VSAudra, I+O VS, Audra, I+O Laboratory Tests 12/26/20 16:19 Vital Signs Date Time Temp Pulse Resp B/P (MAP) Pulse Ox O2 Delivery O2 Flow Rate FiO2 12/27/20 08:21 100 122/73 (89) 12/27/20 06:26 97.6 18 12/27/20 01:20 Room Air KAMILA DRUMMOND DO Dec 27, 2020 11:21
[2020-12-27] MEDS ORDERED: DIBUCAINE 1% OINTMENT 30GM TOP PRN (13:15)
[2020-12-27] MEDS ORDERED: MEASLES,MUMPS,RUBELLA VACCINE INJ (MMR-II) (90707) SC SCH (13:15)
[2020-12-27] MEDS ORDERED: RHOGAM 300 MCG (1500 IU) INJ (J2790) IM SCH (13:15)
[2020-12-27] MEDS ORDERED: PROMETHAZINE 25 MG TAB PO PRN (13:15)
[2020-12-27] MEDS ORDERED: ACETAMINOPHEN TAB 650MG DOSE (2X325MG) PO PRN (13:15)
--- NOTE | 2020-12-27 13:24 | DNPDOC ---
[facility] Delivery Note Delivery Note DATE OF DELIVERY: 27Dec2020 at ~1245 PREDELIVERY DIAGNOSIS: 41+2 weeks gestation and IOL for late term POST DELIVERY DIAGNOSIS: Delivered. PROCEDURE: Spontaneous vaginal delivery HORTICULTURAL MANAGER: Dr. Torres ANESTHESIA: Neuraxial (Epidural). ESTIMATED BLOOD LOSS: 200 mL. FINDINGS: 7 pound 13 ounce male , Scores 9/9 DELIVERY SUMMARY: Nikki progressed to completely dilated and starting pushing. I was called to the room with the baby at +3 station. The bed was broken down and she was prepped for delivery. With excellent pushing effort her baby delivered. Presentation was ALICIA with restitution to ROT. The left anterior shoulder delivered with gentle traction followed easily by the remainder of the body. The infant was dried and stimulated on the field and a bulb suction was used. The infant was placed on the maternal abdomen and cried vigorously. The three vessel umbilical cord was then clamped and cut by the FOB after appropriate time delay and under my direction. Third stage was completed with gentle traction on on the cord and it was productive of an intact placenta. The uterus was firmed with massage and pitocin was administered IV bolus. Inspection of the cervix, vagina, labia, and perineum revealed bilateral sublabial lacerations. The right labial laceration extended into the clitoral bustamante. These lacerations were repaired with 4-0 vicryl and 3-0 vicryl suture in the usual fashion via interrupted sutures after injection of lidocaine for additional analgesia. There was excellent cosmesis and hemostasis after the repairs. The fundus was palpated again and was firm. Sponge, instrument, and needle counts were correct X2. Mother and stable when I left the room. DO BHANU Aldridge CHRISTOPHER J. DO Dec 27, 2020 13:24
[2020-12-27] MEDS ORDERED: LIDOCAINE 1% MDV 20ML VIAL SC ONE (13:25)
[2020-12-27] MEDS: IBUPROFEN 600MG TAB PO PRN ×2 (15:21→21:30)
[2020-12-27] MEDS: ACETAMINOPHEN 500 MG TAB PO PRN (17:32)
[2020-12-27] MEDS: DOCUSATE SODIUM 100MG CAPSULE PO PRN (21:30)
[2020-12-28 06:15] VITALS: BP 123/60
--- NOTE | 2020-12-28 07:22 | IPNPDOC ---
Progress Note Date of Service: Dec 28, 2020 Progress Note Ms. Licona is a 20 yo G5 now P1 who underwent an uncomplicated yesterday afternoon after being admitted for an IOL for late term . She is recovering on the unit. No acute events overnight. This morning Nikki is overall doing well. She reports feeling tired. She is ambulating, voiding, tolerating a regular diet, has minimal pain, and minimal lo john. Vitals - VSS, afebrile normotensive, non tachycardic General - AAOX3, sitting up in bed, pleasant and conversant, NAD Abdomen - Fundus firm at U-2. No fundal tenderness Extremities - No edema Urine output - appropriate Nikki is doing well and is making an appropriate recovery. Continue to encourage ambulation and . Continue routine care. Anticipate discharge home tomorrow. Anand Torres DO VS, I&O, 24H, Audra Vital Signs/I&O Vital Signs Date Time Temp Pulse Resp B/P (MAP) Pulse Ox O2 Delivery O2 Flow Rate FiO2 12/28/20 06:15 98.2 102 18 123/60 (81) 12/27/20 18:00 100 Room Air I&O- Last 24 Hours up to 6 AM 12/28/20 06:00 Intake Total 4807.1 ml Output Total 1800 ml Balance 3007.1 ml ANAND TORRES DO Dec 28, 2020 07:22
[2020-12-28] MEDS: PRENATAL VITAMINS CHEWABLE TABLET PO SCH (07:57)
[2020-12-28] MEDS: IBUPROFEN 800 MG TAB PO PRN ×2 (07:58→16:52)
[2020-12-28 08:05] VITALS: BP 123/60
[2020-12-28] MEDS: DOCUSATE SODIUM 100MG CAPSULE PO PRN (15:05)
[2020-12-28 16:00] VITALS: BP 114/62
[2020-12-28] MEDS: ACETAMINOPHEN 500 MG TAB PO PRN (20:19)
[2020-12-29] MEDS: IBUPROFEN 600MG TAB PO PRN (02:00)
--- NOTE | 2020-12-29 05:37 | IPNPDOC ---
Progress Note Date of Service: Dec 29, 2020 Day#: 2 Progress Note SUBJECT: Ms. Licona is a 20 yo G5 now P1 who underwent an uncomplicated now PPD2 after being admitted for an IOL for late term . She has been ambulating, voiding spontaneously without issue and tolerating regular diet. Breast feeding without issue. Reports lochia is [like a normal period]. Patient is ambulating well. [Reports some cramping with . Denies any pain. Voiding and stooling without difficulty]. OBJECTIVE: VITAL SIGNS: Within normal limits, afebrile. Non-tachycardic No increased WOB Heart rate: Regular rate and rhythm, no murmurs, rubs or gallops. Abdomen: Fundus firm at U-2. Soft, NTTP. [Minimal] lochia. ASSESSMENT: Ms. Licona is a 20 yo G5 now P1 who underwent an uncomplicated now PPD2 after being admitted for an IOL for late term . Vitals within normal limits, afebrile, hemodynamically stable with no evidence of infection. PLAN: 1. Discharge to home today. 2. Tylenol and Motrin for pain. 3. Encourage breast feeding and ambulation. 4. Contraception undecided, educated on options and risk of close interval 5. Routine PP visit in 6 weeks in clinic. 6. Discussed return precautions at length. VS, I&O, 24H, Fishbone Vital Signs/I&O Vital Signs Date Time Temp Pulse Resp B/P (MAP) Pulse Ox O2 Delivery O2 Flow Rate FiO2 12/28/20 16:00 99.0 91 16 114/62 (79) 12/28/20 08:05 100 Room Air ELHAM BRITT DO Dec 29, 2020 05:37
[2020-12-29 06:00] VITALS: BP 111/64
[2020-12-29] MEDS: PRENATAL VITAMINS CHEWABLE TABLET PO SCH (07:44)
[2020-12-29] MEDS: IBUPROFEN 800 MG TAB PO PRN (14:36)
== END 2020-12-29 14:12 | disposition home or self-care (01) | DRG 807 ==
LOC: M LDI 15:14 → M OBS 12-27 14:47
PROVIDERS: ADMIT Registered Nurse; ATTEND Registered Nurse
PROC: 3E0DXGC Introduction of Other Therapeutic Substance into Mouth and Pharynx, External Approach (ICD-10-PCS; 2020-12-26)
PROC: 10E0XZZ Delivery of Products of Conception, External Approach (ICD-10-PCS; principal; 2020-12-27)
PROC: 0HQ9XZZ Repair Perineum Skin, External Approach (ICD-10-PCS; 2020-12-27)
PROC: 3E033VJ Introduction of Other Hormone into Peripheral Vein, Percutaneous Approach (ICD-10-PCS; 2020-12-27)
DX: O48.0 Post-term pregnancy (principal); Z37.0 Single live birth; Z3A.41 41 weeks gestation of pregnancy; J45.909 Unspecified asthma, uncomplicated; O99.52 Diseases of the respiratory system complicating childbirth; O26.00 Excessive weight gain in pregnancy, unspecified trimester; Z91.040 Latex allergy status; O70.0 First degree perineal laceration during delivery

== ENCOUNTER → 2025-09-25 | Outpatient (RCR) ==
[~2025-09-25] MED LIST changes: +FLUO-96 PO; -FLUO20CA20 PO; -IBUP-1022 PO; +IBUP600T42 PO; +LIDO15SO8 PO; -LIDO2SOL17 PO; +NYST1POW3 TOP; -NYST1POW9 TOP; +OMEP-173 PO; -OMEP-218 PO; +OMEP40CA4 PO; -OMEP40CA97 PO; +ONDA-282 PO; -ONDA4TAB6 PO
== END ==
LOC: M EMPSSV 09-01 14:29 → M EMPSKH 09-01 14:29
PROVIDERS: ATTEND Family Medicine
DX: Z20.828 Contact with and (suspected) exposure to other viral communicable diseases (principal)